=== PATIENT | female | born 1990 | race African-American/Black ===

== ENCOUNTER 2016-05-02 19:39 | Emergency (ER) | payer SELFPAY ==
[2016-05-02] MEDS ORDERED: DIPHENHYDRAMINE HCL 25 MG CAPSULE PO ONE (20:34)
[2016-05-02] MEDS ORDERED: ACETAMINOPHEN 325 MG TABLET PO ONE (20:34)
[2016-05-02] MEDS ORDERED: METOCLOPRAMIDE HCL 10 MG TABLET PO ONE (20:34)
--- NOTE | 2016-05-02 20:34 | ER Document Report ---
ED Medical Screen (RME) - General Stated Complaint: COUGH,HEADACHE Notes: Patient is a 25-year-old female presents emergency Department complaining of migraine for the past 3 days. States that distribution is all around her head. Has not resolved with BC powder which she states typically takes care of that. Denies light or sound sensitive. also admits to cough for about 1.5 months but nonproductive and worse when she lies down. Also feels lethargic which has been for the past three days I have greeted and performed a rapid initial assessment of this patient. A comprehensive ED assessment and evaluation of the patient, analysis of test results and completion of the medical decision making process will be conducted by additional ED providers. TRAVEL OUTSIDE OF THE [place] IN LAST 30 DAYS: No - Related Data Allergies/Adverse Reactions: No Known Allergies Allergy (Verified 02/07/16 18:23) Past Medical History - Past Medical History Cardiac Medical History: Reports: Hx Hypertension - Immunizations Hx Diphtheria, Pertussis, Tetanus Vaccination: Yes - unknown last Physical Exam - Vital signs Vitals: Temp Pulse Resp BP Pulse Ox 98.0 F 99 17 140/92 H 99 05/02/16 20:21 05/02/16 20:21 05/02/16 20:21 05/02/16 20:21 05/02/16 20:21 Course - Vital Signs Vital signs: Temp Pulse Resp BP Pulse Ox 98.0 F 99 17 140/92 H 99 05/02/16 20:21 05/02/16 20:21 05/02/16 20:21 05/02/16 20:21 05/02/16 20:21
--- NOTE | 2016-05-02 22:22 | ER Document Report ---
ED General - General Chief Complaint: Headache >24 hrs old Stated Complaint: COUGH,HEADACHE Notes: Patient is a 25-year-old female that comes emergency department chief complaint of sinus and nasal congestion, cough, irritated throat, and headache. She states she has had symptoms for over 3 days worse than usual, however over the past 1.5 months she has had difficulties with this, states when she lies flat she cannot stop coughing. LMP within the past 4 weeks. Patient had a negative CAT scan of the head last year, takes BC powder for migraines as needed. TRAVEL OUTSIDE OF THE [place] IN LAST 30 DAYS: No - Related Data Allergies/Adverse Reactions: No Known Allergies Allergy (Verified 02/07/16 18:23) Past Medical History - General Information source: Patient - Social History Smoking Status: Former Smoker Frequency of alcohol use: None Drug Abuse: None Lives with: Family Family History: Arthritis, CAD, CVA, DM, Hyperlipidemia, Hypertension, Malignancy, Thyroid Disfunction Patient has suicidal ideation: No Patient has homicidal ideation: No - Past Medical History Cardiac Medical History: Reports: Hx Hypertension Renal/ Medical History: Denies: Hx Peritoneal Dialysis Surgical Hx: Negative - Immunizations Hx Diphtheria, Pertussis, Tetanus Vaccination: Yes - unknown last Review of Systems - Review of Systems Constitutional: See HPI EENT: See HPI Cardiovascular: No symptoms reported Respiratory: No symptoms reported Gastrointestinal: No symptoms reported Genitourinary: No symptoms reported Female Genitourinary: No symptoms reported Musculoskeletal: No symptoms reported Skin: No symptoms reported Hematologic/Lymphatic: No symptoms reported Neurological/Psychological: See HPI Physical Exam - Vital signs Vitals: Temp Pulse Resp BP Pulse Ox 98.0 F 99 17 140/92 H 99 05/02/16 20:21 05/02/16 20:21 05/02/16 20:21 05/02/16 20:21 05/02/16 20:21 Interpretation: Normal - General General appearance: Appears well, Alert - HEENT Head: Normocephalic, Atraumatic Eyes: Normal Conjunctiva: Normal Extraocular movements intact: Yes Eyelashes: Normal Pupils: PERRL Ears: Normal External canal: Normal Tympanic membrane: Normal Sinus: Frontal, Maxillary, Other - Tender over maxillary and frontal sinuses, slightly worse on the frontal sinuses, no severe tenderness Nasal: Other - Mild nasal congestion with slightly swollen and erythematous turbinates Mouth/Lips: Normal Mucous membranes: Normal Pharynx: Erythema - Very mild posterior pharynx erythema. No: Tonsillar hypertrophy, Uvular edema Neck: Normal. No: Anterior cervical chain, Posterior cervical chain - Respiratory Respiratory status: No respiratory distress Chest status: Nontender Breath sounds: Normal. No: Nonproductive cough, Wheezing Chest palpation: Normal - Cardiovascular Rhythm: Regular. No: Tachycardia Heart sounds: Normal auscultation, S1 appreciated, S2 appreciated Murmur: No - Abdominal Inspection: Normal Distension: No distension Bowel sounds: Normal Tenderness: Nontender Organomegaly: No organomegaly - Back Back: Normal, Nontender - Extremities General upper extremity: Normal inspection, Nontender, Normal color, Normal ROM , Normal temperature General lower extremity: Normal inspection, Nontender, Normal color, Normal ROM , Normal temperature, Normal weight bearing. No: Keshawn's sign - Neurological Neuro grossly intact: Yes Cognition: Normal Orientation: AAOx4 Rodney Coma Scale Eye Opening: Spontaneous Rodney Coma Scale Verbal: Oriented Rodney Coma Scale Motor: Obeys Commands [place] Coma Scale Total: 15 Speech: Normal Motor strength normal: LUE, RUE, LLE, RLE Sensory: Normal - Psychological Associated symptoms: Normal affect, Normal mood - Skin Skin Temperature: Warm Skin Moisture: Dry Skin Color: Normal Course - Re-evaluation Re-evalutation: Patient pleasantly talking on cell phone when I entered the room, alert, smiling , cheerful, talkative. Patient is obviously congestion with congestion of the nose and tenderness over the sinuses. No neurological deficits were concerning exam findings. Headache has resolved after by mouth medications from triage. Will treat sinuses, discharge with primary care follow-up, discussed return precautions, patient states satisfaction and agreement. - Vital Signs Vital signs: Temp Pulse Resp BP Pulse Ox 97.9 F 90 19 135/88 H 100 05/02/16 22:37 05/02/16 22:37 05/02/16 22:37 05/02/16 22:37 05/02/16 22:37 Discharge - Discharge Clinical Impression: Sinus congestion, Cough Headache Qualifiers: Headache type: unspecified Headache chronicity pattern: episodic headache Intractability: not intractable Qualified Code(s): R51 - Headache Condition: Stable Disposition: HOME, SELF-CARE Additional Instructions: Examination is consistent with a sinus infection, congestion of the paranasal sinuses, and headache was likely related to this as well. By examination there appears to be an allergic component to your congestion, cough, and sore throat. Take amoxicillin antibiotic for sinuses, use the Ksenia and Flonase daily to help control your sinuses, follow-up with primary care referral for additional management. Return to emergency department for any concerning or worsening symptoms. Prescriptions: Amoxicillin Trihydrate [Amoxil 500 mg Capsule] 500 mg PO TID #30 cap Fexofenadine HCl [Ksenia Allergy] 180 mg PO DAILY #30 tablet Fluticasone Propionate [Flonase Nasal [place] 50 Mcg/[place] 16 gm] 2 sprays NASL Q12 #1 inhaler Forms: Treatment of Relative/Child, Elevated Blood Pressure
[2016-05-02 22:42] VITALS: BP 135/88
== END 2016-05-02 22:43 | disposition home or self-care (01) ==
LOC: ER 19:39
DX: R05 Cough (principal); R09.81 Nasal congestion; R51 Headache; R09.89 Other specified symptoms and signs involving the circulatory and respiratory systems; I10 Essential (primary) hypertension; Z87.891 Personal history of nicotine dependence; Z86.69 Personal history of other diseases of the nervous system and sense organs
CPT/HCPCS: 71020; 99284

== ENCOUNTER 2017-06-12 11:00 | Emergency (ER) | payer SELFPAY ==
--- NOTE | 2017-06-12 12:13 | ER Document Report ---
ED Medical Screen (RME) - General Chief Complaint: Vag Bleeding, +preg <12wks Stated Complaint: VAGINAL BLEEDING Time Seen by Provider: 06/12/17 11:51 Mode of Arrival: Ambulatory Information source: Patient Notes: Patient is a 27-year-old female who presents to the emergency department today with complaints of lower abdominal pain. Patient states that the "when she had her second child she was told that she would either miscarry or perhaps if she became again". Patient states that she was "going to go to [place] to have an " but she has not gotten that far yet. Patient is A1. Patient states she found out she was 4 [facility]. Patient states she has had lower abdominal cramping that radiates to her back. Patient has had associated nausea, vomiting , and a headache. Patient denies dysuria. TRAVEL OUTSIDE OF THE [place] IN LAST 30 DAYS: No - Related Data Allergies/Adverse Reactions: No Known Allergies Allergy (Verified 02/07/16 18:23) Past Medical History - General Information source: Patient Last Menstrual Period: april - Social History Chew tobacco use (# tins/day): No Frequency of alcohol use: Rare Drug Abuse: Marijuana Lives with: Family Family history: Reviewed & Not Pertinent - Past Medical History Cardiac Medical History: Reports: Hx Hypertension Renal/ Medical History: Denies: Hx Peritoneal Dialysis Surgical Hx: Negative - Immunizations Hx Diphtheria, Pertussis, Tetanus Vaccination: Yes - unknown last Review of Systems - Review of Systems Constitutional: No symptoms reported EENT: No symptoms reported Cardiovascular: No symptoms reported Respiratory: No symptoms reported Gastrointestinal: See HPI, Abdominal pain, Nausea, Vomiting Genitourinary: denies: Dysuria Female Genitourinary: See HPI, Last menstrual period - "beginning of April", Musculoskeletal: No symptoms reported Skin: No symptoms reported Hematologic/Lymphatic: No symptoms reported Neurological/Psychological: Headaches -: Yes All other systems reviewed and negative Physical Exam - Vital signs Vitals: Temp Pulse Resp BP Pulse Ox 98.5 F 102 H 17 150/87 H 99 06/12/17 11:05 06/12/17 11:05 06/12/17 11:05 06/12/17 11:05 06/12/17 11:05 - Notes Notes: Physical Exam: General: Alert, appears well. HEENT: Normocephalic. Atraumatic. PERRLA. Extraocular movements intact. Oropharynx clear. Neck: Supple. Respiratory: No respiratory distress. Abdominal: Normal Inspection. No distension. Extremities: Moves all four extremities. Neurological: Normal cognition. AAOx4. Normal speech. Psychological: Normal affect. Normal Mood. Skin: Warm. Dry. Normal color. Course - Vital Signs Vital signs: Temp Pulse Resp BP Pulse Ox 98.5 F 102 H 17 150/87 H 99 06/12/17 11:05 06/12/17 11:05 06/12/17 11:05 06/12/17 11:05 06/12/17 11:05 - Laboratory Laboratory results interpreted by ny: 06/12/17 06/12/17 12:34 12:34 Beta HCG, Quant 24655.00 H Urine Protein 30 H Urine Urobilinogen 2.0 H Ur Leukocyte Esterase MODERATE H Scribe Documentation - Scribe Written by Fidel:: Fidel García, 06/12/2017 1510 acting as scribe for :: Johann
[2017-06-12 13:01] LABS: APPEARANCE,URINE SLIGHTLY-CLOUDY; BILIRUBIN,URINE NEGATIVE (NEGATIVE); COLOR,URINE YELLOW; GLUCOSE, URINE NEGATIVE (NEGATIVE); KETONES,URINE NEGATIVE (NEGATIVE); LEUKOCYTE ESTERASE,URINE MODERATE (NEGATIVE); NITRITE,URINE NEGATIVE (NEGATIVE); PROTEIN,URINE 30 mg/dL (NEGATIVE); URINE SPECIFIC GRAVITY 1.021
--- NOTE | 2017-06-12 14:59 | RADIOLOGY REPORT (SQ) ---
EXAM DESCRIPTION: U/S OB TRANSVAGINAL W/O DOP COMPLETED DATE/TIME: 06/12/2017 2:49 pm REASON FOR STUDY: vag bleed, 5 weeks preg COMPARISON: None. TECHNIQUE: Transvaginal static and realtime grayscale images acquired of the pelvis. Additional gonsalo cted spectral and color Doppler images recorded. All images stored on PACs. bHCG: Not available. LIMITATIONS: None. FINDINGS: FETUS: Living intrauterine . EGA: 6 week 1 day. FRANK: 02/04/2018. FHR: cardiac activity is visualized on real-time imaging. Unable to obtain an accurate heart r ate due to the small size. SUBCHORIONIC BLEED: No. SIZE OF BLEED: Not applicable. UTERUS: No masses. No anomalies. CERVICAL LENGTH: 3.2 cm. Closed. RIGHT ADNEXA: Ovary not identified. No adnexal free fluid. No adnexal masses. LEFT ADNEXA: Normal ovary with normal vascular flow. No adnexal free fluid. No adnexal masses. FREE FLUID: None. OTHER: No other significant finding. IMPRESSION: LIVING INTRAUTERINE . EGA 6 WEEK 1 DAY. Trimester of : First - 0 to 13 weeks. TECHNICAL DOCUMENTATION: JOB ID: [id number] [employer]- All Rights Reserved Reading location - IP/workstation name: [email or web address]
[2017-06-12 16:07] VITALS: BP 143/95
--- NOTE | 2017-06-12 16:07 | ER Document Report ---
ED GI/ - General Chief Complaint: Vag Bleeding, +preg <12wks Stated Complaint: VAGINAL BLEEDING Time Seen by Provider: 06/12/17 11:51 Mode of Arrival: Ambulatory Notes: Patient is approximately 6 weeks and experiencing pains across her lower abdomen for the past week. Pains are crampy. She is also had some vaginal spotting for the past couple of days. G4, P2, A1. LMP was in early April. She is experiencing nausea and vomiting. Denies any fevers. Denies any other symptoms. Patient has a history of sleep apnea and migraine headaches. She has had gestational hypertension with past pregnancies but she is not on any medicines for blood pressure at this time. TRAVEL OUTSIDE OF THE [place] IN LAST 30 DAYS: No - Related Data Allergies/Adverse Reactions: No Known Allergies Allergy (Verified 02/07/16 18:23) Past Medical History - General Information source: Patient Last Menstrual Period: april - Social History Smoking Status: Unknown if Ever Smoked Chew tobacco use (# tins/day): No Frequency of alcohol use: Rare Drug Abuse: Marijuana Lives with: Family Family History: Reviewed & Not Pertinent, Arthritis, CAD, CVA, DM, Hyperlipidemia, Hypertension, Malignancy, Thyroid Disfunction Patient has suicidal ideation: No Patient has homicidal ideation: No - Past Medical History Cardiac Medical History: Reports: Hx Hypertension Surgical Hx: Negative - Immunizations Hx Diphtheria, Pertussis, Tetanus Vaccination: Yes - unknown last Review of Systems - Review of Systems Notes: REVIEW OF SYSTEMS: CONSTITUTIONAL : Denies fever. EENT: Denies eye, ear, nose or mouth or throat pain or other symptoms. CARDIOVASCULAR: Denies chest pain. RESPIRATORY: Denies cough, chest congestion, or shortness of breath. GASTROINTESTINAL: See HPI.. GENITOURINARY: See HPI. MUSCULOSKELETAL: Denies back or neck pain. Denies joint pain or swelling. SKIN: Denies rash or skin lesions. NEUROLOGICAL: Denies LOC or altered mental status. Denies headache. Denies sensory loss or motor deficits. ALL OTHER SYSTEMS REVIEWED AND NEGATIVE. Physical Exam - Vital signs Vitals: Temp Pulse Resp BP Pulse Ox 98.5 F 102 H 17 150/87 H 99 06/12/17 11:05 06/12/17 11:05 06/12/17 11:05 06/12/17 11:05 06/12/17 11:05 Interpretation: Hypertensive - Mild - Notes Notes: PHYSICAL EXAMINATION: GENERAL: Well-appearing, in no acute distress. Blood pressure just slightly elevated. HEAD: Atraumatic, normocephalic. EYES: Pupils equal round and reactive to light, extraocular movements intact. ENT: oropharynx clear without exudates. Moist mucous membranes. NECK: Normal range of motion, supple. LUNGS: Breath sounds clear and equal bilaterally. HEART: Regular rate and rhythm without murmurs. ABDOMEN: Soft, nontender. No guarding or rebound. No masses. BACK: No tenderness throughout entire back. EXTREMITIES: Normal range of motion without pain. NEUROLOGICAL: Normal speech, normal gait. Normal sensory, motor, and reflex exams. Awake, alert, and oriented x3. Cranial nerves normal. PSYCH: Normal mood, normal affect. SKIN: Warm, dry, no rashes. Course - Re-evaluation Re-evalutation: 06/12/17 19:45 Patient is Rh- so she was given RhoGam. - Vital Signs Vital signs: Temp Pulse Resp BP Pulse Ox 98.3 F 88 16 143/95 H 100 06/12/17 16:03 06/12/17 16:03 06/12/17 16:03 06/12/17 16:03 06/12/17 16:03 - Laboratory Laboratory results interpreted by me: 06/12/17 06/12/17 12:34 12:34 Beta HCG, Quant 16026.00 H Urine Protein 30 H Urine Urobilinogen 2.0 H Ur Leukocyte Esterase MODERATE H - Diagnostic Test Radiology reviewed: Image reviewed, Reports reviewed - Ultrasound showed a living IUP about 6 weeks gestation. Heartbeat can be noted to be eating, but too small to calculate a heart rate. No other abnormalities. Discharge - Discharge Clinical Impression: , Vaginal bleeding during Condition: Stable Disposition: HOME, SELF-CARE Additional Instructions: : You are . care is best started as early in as possible. If you're unsure about continuing this , you should discuss this with your physician or with aircraft electrical systems specialist at [facility]. You should take only medications approved by your physician. Acetaminophen can safely be taken for minor pains. As a rule, medication for chronic conditions such as asthma or seizures can safely be continued. You should discuss with the physician every medicine you take. Any regular exercise program can be continued. Talk to your physician, however, before engaging in competitive or demanding sports. Alcohol, smoking, and "street drugs" are dangerous to your baby. Cocaine is especially dangerous. Don't use any illicit drugs! BLEEDING DURING EARLY : You have been evaluated for passing blood while . While we take this symptom very seriously, most women with your degree of bleeding will go on to have a perfectly normal baby. At this time, there is no indication that a miscarriage will occur. (A miscarriage occurs when the fetus is abnormal. There is no medicine or treatment to prevent it.) A more serious cause of bleeding is tubal (or ectopic) . An ultrasound usually can show whether the is in the uterus or in the tube. Sometimes in early , no fetus is seen. In this case, careful follow-up, including repeat blood tests and repeat ultrasound, is necessary. Do not douche or have sex for at least a week, or until OK'd by the doctor. Don't use tampons. Call the doctor or return for re-examination if there is an increase in bleeding or cramping, extreme weakness, fainting, new abdominal pain, fever, or passage of tissue. THREATENED MISCARRIAGE: You have been evaluated for a possible miscarriage. At this time, there is no indication that a miscarriage will occur. Most women with your symptoms will go on to have a perfectly normal baby. However, careful observation will be necessary. A miscarriage occurs when the fetus is abnormal. There is no medicine or treatment for it. You should rest in bed until the symptoms have resolved. Do not douche or have sex for at least a week, or until OK'd by the doctor. Call the doctor or return for re-examination if there is an increase in bleeding or cramping, or passage of tissue. RHOGAM: Rhogam is given to a woman who has Rh negative blood type when she has vaginal bleeding during her or at the time of the delivery of her baby. If a woman is Rh negative, her body will form antibodies against red blood cells from an Rh positive fetus or baby that mix with her blood during a threatened or actual miscarraige or delivery. These antibodies will remain in the woman's body forever and will attack any future Rh positive fetus preventing it from developing into a normal baby. Rhogam is given to prevent the mother's body from forming these antibodies. USE OF ACETAMINOPHEN (Tylenol): Acetaminophen may be taken for pain relief or fever control. It's much safer than aspirin, offering a wider range of "safe" dosages. It is safe during . Some brand names are Tylenol, Panadol, Datril, Anacin 3, Tempra, and Liquiprin. Acetaminophen can be repeated every four hours. The following are maximum recommended dosages: WEIGHT Dose Drops Elixir Chewable( 80mg) (LBS.) drprs=droppers tsp=teaspoon >89 pounds or adults 650 mg to 900 mg Acetaminophen can be repeated every four hours. Maximum dose not to exceed 4000 mg a day. These maximum recommended dosages are slightly higher than the dosages written on the product container, but these dosages are very safe and below the toxic dosage for acetaminophen. FOLLOW-UP CARE: If you have been referred to a physician for follow-up care, call the physician s office for an appointment as you were instructed or within the next two days. If you experience worsening or a significant change in your symptoms (very heavy bleeding with large clots of blood, passage of tissue, more severe abdominal / pelvic pain or cramping, feeling faint or severe weakness, fever, etc.), notify the physician immediately or return to the Emergency Department at any time for re-evaluation. Follow-up at the local health department for you to be assigned to an HUMAN RESOURCE CONSULTANT doctor for further follow-up care. Return for reevaluation if you start passing heavy blood and clots or severe pain that is not controlled with Tylenol.
== END 2017-06-12 16:10 | disposition home or self-care (01) ==
LOC: ER 11:00
DX: O20.9 Hemorrhage in early pregnancy, unspecified (principal); Z3A.01 Less than 8 weeks gestation of pregnancy
CPT/HCPCS: 99284; 96372; 86900; 86901; 36415; 86850; 84702; 81001; 76817; J2790

== ENCOUNTER 2017-06-26 08:13 | Emergency (ER) | payer SELFPAY ==
[2017-06-26 09:48] LABS: HEMATOCRIT 29.5 % (36.0-47.0); MEAN CORPUSCULAR HEMOGLOBIN 19.5 pg (27.0-33.4); MEAN CORPUSCULAR HGB CONC 30.5 g/dL (32.0-36.0); PLATELET COUNT 266 10^3/uL (150-450); RED BLOOD COUNT 4.61 10^6/uL (3.72-5.28); RED CELL DISTRIBUTION WIDTH 20.7 % (11.5-14.0); WHITE BLOOD COUNT 6.1 10^3/uL (4.0-10.5)
[2017-06-26 09:54] LABS: MEAN CORPUSCULAR VOLUME 64 fl (80-97)
[2017-06-26 10:28] LABS: ABSOLUTE MONOCYTES # (MANUAL) 0.6 10^3/uL (0.1-1.4); ABSOLUTE NEUTROPHILS# (MANUAL) 3.5 10^3/uL (1.7-8.2); BASOPHILS % (MANUAL) 1 % (0-2); EOSINOPHILS % (MANUAL) 0 % (0-6); LYMPHOCYTES % (MANUAL) 31 % (13-45); MONOCYTES % (MANUAL) 10 % (3-13); SEGMENTED NEUTROPHILS % (MAN) 57 % (42-78); TOTAL CELLS COUNTED 100
[2017-06-26 10:29] LABS: ANISOCYTOSIS 2+; HYPOCHROMASIA 2+; OVALOCYTES 1+; PLATELET COMMENT ADEQUATE; POIKILOCYTOSIS 1+; POLYCHROMASIA 1+; ROULEAUX SLIGHT
--- NOTE | 2017-06-26 10:47 | RADIOLOGY REPORT (SQ) ---
EXAM DESCRIPTION: U/S [id number] TRNABD 1GES W/ODOP COMPLETED DATE/TIME: 06/26/2017 10:17 am REASON FOR STUDY: vag bleeding, COMPARISON: 06/12/2017 TECHNIQUE: Transabdominal static and realtime grayscale images acquired of the pelvis. Additional se lected spectral and color Doppler images recorded. All images stored on PACs. bHCG: Not available CLINICAL DATES: 02/04/2018 LIMITATIONS: None. FINDINGS: FETUS: Living intrauterine . ULTRASOUND EGA: 7 weeks 3 days ULTRASOUND FRANK: 02/09/2018 CRL: 1.2 cm FHR: 152 beats per minute. SUBCHORIONIC BLEED: No SIZE OF BLEED: Not applicable. UTERUS: No masses. No anomalies. CERVICAL LENGTH: 3.4 cm Closed. RIGHT ADNEXA: Right ovary was not visualized. No adnexal free fluid. No adnexal masses. LEFT ADNEXA: Left ovary was not visualized. No adnexal free fluid. No adnexal masses. FREE FLUID: None. OTHER: No other significant finding. IMPRESSION: LIVING INTRAUTERINE . EGA 7 weeks 3 days Trimester of : First - 0 to 13 weeks. TECHNICAL DOCUMENTATION: JOB ID: [id number] [employer]- All Rights Reserved rev-07/11 Reading location - IP/workstation name: [email or web address]
[2017-06-26] MEDS ORDERED: ACETAMINOPHEN 325 MG TABLET PO ONE (11:26)
[2017-06-26 11:42] LABS: APPEARANCE,URINE SLIGHTLY-CLOUDY; BILIRUBIN,URINE NEGATIVE (NEGATIVE); COLOR,URINE YELLOW; GLUCOSE, URINE NEGATIVE (NEGATIVE); KETONES,URINE NEGATIVE (NEGATIVE); LEUKOCYTE ESTERASE,URINE LARGE (NEGATIVE); NITRITE,URINE NEGATIVE (NEGATIVE); PROTEIN,URINE NEGATIVE (NEGATIVE); URINE SPECIFIC GRAVITY 1.005; UROBILINOGEN,URINE NEGATIVE mg/dL (<2.0)
--- NOTE | 2017-06-26 12:11 | ER Document Report ---
ED GI/ - General Chief Complaint: Vaginal Bleeding Stated Complaint: VAGINAL BLEEDING Time Seen by Provider: 06/26/17 08:43 Mode of Arrival: Ambulatory Information source: Patient Notes: Patient is a 27-year-old female, approximately 2 months who presents to the ER today for pink discharge with milky white discharge over the past week. Patient states that the milky white discharge is normal for her, however she was worried because of the spotting. Patient admits to some lower abdominal cramping all across the lower belly. Patient denies any fever, chills , pain on one side or the other of the abdomen. She denies any dysuria, low back pain. TRAVEL OUTSIDE OF THE [place] IN LAST 30 DAYS: No - Related Data Allergies/Adverse Reactions: No Known Allergies Allergy (Verified 02/07/16 18:23) Past Medical History - General Information source: Patient - Social History Smoking Status: Never Smoker Family History: Reviewed & Not Pertinent, Arthritis, CAD, CVA, DM, Hyperlipidemia, Hypertension, Malignancy, Thyroid Disfunction - Past Medical History Cardiac Medical History: Reports: Hx Hypertension Renal/ Medical History: Denies: Hx Peritoneal Dialysis - Immunizations Hx Diphtheria, Pertussis, Tetanus Vaccination: Yes - unknown last Review of Systems - Review of Systems Constitutional: No symptoms reported EENT: No symptoms reported Cardiovascular: No symptoms reported Respiratory: No symptoms reported Gastrointestinal: No symptoms reported Genitourinary: No symptoms reported Female Genitourinary: See HPI Musculoskeletal: No symptoms reported Skin: No symptoms reported Hematologic/Lymphatic: No symptoms reported Neurological/Psychological: No symptoms reported Physical Exam - Vital signs Vitals: Temp Pulse Resp BP Pulse Ox 98.1 F 112 H 20 141/95 H 100 06/26/17 08:29 06/26/17 08:29 06/26/17 08:29 06/26/17 08:29 06/26/17 08:29 - Notes Notes: PHYSICAL EXAMINATION: GENERAL: Well-appearing and in no acute distress. HEAD: Atraumatic, normocephalic. EYES: Pupils equal round and reactive to light, extraocular movements intact, sclera anicteric, conjunctiva are normal. NECK: Normal range of motion, supple without lymphadenopathy LUNGS: CTAB and equal. No wheezes rales or rhonchi. HEART: Regular rate and rhythm without murmurs ABDOMEN: Soft, no tenderness. No guarding, no rebound BACK: no vertebral tenderness, normal ROM GI/: no CVA tenderness EXTREMITIES: Normal range of motion, no pitting edema. No cyanosis. NEUROLOGICAL: Cranial nerves grossly intact. Normal sensory/motor exams. PSYCH: Normal mood, normal affect. SKIN: Warm, Dry, normal turgor, no rashes or lesions noted Course - Re-evaluation Re-evalutation: 06/26/17 12:08 Ultrasound reports a living intrauterine with a heart rate of 152 bpm with no evidence of abnormality, bleed. Patient has 27 white blood cells and leukocytes on her urinalysis today. Will treat for urinary tract infection and with Macrobid. Patient denies any back pain and has no flank pain on exam. Patient is afebrile here and has been sleeping. 06/26/17 12:09 She does have a hemoglobin of 9, I will start her on vitamins with iron. - Vital Signs Vital signs: Temp Pulse Resp BP Pulse Ox 98.1 F 112 H 20 141/95 H 100 06/26/17 08:29 06/26/17 08:29 06/26/17 08:29 06/26/17 08:29 06/26/17 08:29 - Laboratory Result Diagrams: 06/26/17 08:55 Laboratory results interpreted by me: 06/26/17 06/26/17 08:55 11:19 Hgb 9.0 L Hct 29.5 L MCV 64 L MCH 19.5 L MCHC 30.5 L RDW 20.7 H Ur Leukocyte Esterase LARGE H Urine HCG, Qual POSITIVE H Discharge - Discharge Clinical Impression: Low hemoglobin UTI (urinary tract infection) Qualifiers: Urinary tract infection type: acute cystitis Hematuria presence: with hematuria Qualified Code(s): N30.01 - Acute cystitis with hematuria Qualifiers: Weeks of gestation: less than 8 weeks Qualified Code(s): Z3A.01 - Less than 8 weeks gestation of Condition: Stable Disposition: HOME, SELF-CARE Additional Instructions: Return immediately for any new or worsening symptoms. Follow up with [facility], call tomorrow to make followup appointment. Prescriptions: Nitrofurantoin/Nitrofuran Mac [Macrobid 100 mg Capsule] 1 tab PO BID #20 capsule Pnv,Calcium 72/Iron,Carb/Folic [ Plus Iron Tablet] 1 each PO DAILY #30 tablet Referrals: [facility] [Provider Group] - Follow up as needed
[2017-06-26 12:56] VITALS: BP 148/102
[2017-06-27 14:47] LABS: PATH REVIEW PATHOLOGIST REVIEWED
== END 2017-06-26 12:55 | disposition home or self-care (01) ==
LOC: ER 08:13
DX: O23.41 Unspecified infection of urinary tract in pregnancy, first trimester (principal); O99.011 Anemia complicating pregnancy, first trimester; Z3A.01 Less than 8 weeks gestation of pregnancy
CPT/HCPCS: 36415; 76801; 81001; 81025; 85025; 99284

== ENCOUNTER 2017-09-09 20:58 | Observation (INO) | payer MEDICAID ==
[2017-09-09 22:07] LABS: ABSOLUTE EOSINOPHILS # (AUTO) 0.2 10^3/uL (0.0-0.6); ABSOLUTE LYMPHOCYTES (AUTO) 2.1 10^3/uL (0.5-4.7); ABSOLUTE MONOCYTES (AUTO) 0.8 10^3/uL (0.1-1.4); ABSOLUTE NEUT (AUTO) 6.7 10^3/uL (1.7-8.2); BASOPHILS % (AUTO) 0.2 % (0-2); HEMATOCRIT 26.1 % (36.0-47.0); HEMOGLOBIN 8.2 g/dL (12.0-15.5); LYMPHOCYTES % (AUTO) 21.4 % (13-45); MEAN CORPUSCULAR HEMOGLOBIN 19.8 pg (27.0-33.4); MEAN CORPUSCULAR HGB CONC 31.5 g/dL (32.0-36.0); MONOCYTES % (AUTO) 8.1 % (3-13); PLATELET COUNT 279 10^3/uL (150-450); RED BLOOD COUNT 4.16 10^6/uL (3.72-5.28); RED CELL DISTRIBUTION WIDTH 19.6 % (11.5-14.0); SEGMENTED NEUTROPHILS % (AUTO) 68.3 % (42-78); TOTAL CELLS COUNTED % (AUTO) 100 %; WHITE BLOOD COUNT 9.8 10^3/uL (4.0-10.5)
[2017-09-09 22:12] LABS: AMORPHOUS SEDIMENT,URINE TRACE /HPF; APPEARANCE,URINE SLIGHTLY-CLOUDY; BILIRUBIN,URINE NEGATIVE (NEGATIVE); COLOR,URINE YELLOW; GLUCOSE, URINE NEGATIVE (NEGATIVE); KETONES,URINE NEGATIVE (NEGATIVE); LEUKOCYTE ESTERASE,URINE MODERATE (NEGATIVE); NITRITE,URINE NEGATIVE (NEGATIVE); PROTEIN,URINE 30 mg/dL (NEGATIVE); URINE SPECIFIC GRAVITY 1.019
[2017-09-09 22:29] LABS: ANISOCYTOSIS 2+; OVALOCYTES 1+; PLATELET COMMENT ADEQUATE; POLYCHROMASIA SLIGHT; TARGET CELLS SLIGHT
[2017-09-09 22:30] LABS: MEAN CORPUSCULAR VOLUME 63 fl (80-97); POIKILOCYTOSIS 1+
--- NOTE | 2017-09-09 23:19 | ER Document Report ---
ED General - General Chief Complaint: Vaginal Bleeding Stated Complaint: ABDOMEN PAIN Time Seen by Provider: 09/09/17 22:57 Notes: Patient is a 27-year-old female who is . She is approximately 18-19 weeks . She has already received program this . Patient says for the previous 2 pregnancies she did develop preeclampsia. Patient says when she is not she does not have hypertension. She says her last few days her blood pressures been running high and also she has noticed some edema in her legs as well as headaches as well as some difficulty breathing. Patient also mentions little bit of vaginal spotting as well as some whitish discharge vaginally. She also has some pain down into her pelvic region. [facility] TRAVEL OUTSIDE OF THE [place] IN LAST 30 DAYS: No - Related Data Allergies/Adverse Reactions: No Known Allergies Allergy (Verified 02/07/16 18:23) Past Medical History - Social History Smoking Status: Unknown if Ever Smoked Frequency of alcohol use: None Drug Abuse: None Family History: Reviewed & Not Pertinent, Arthritis, CAD, CVA, DM, Hyperlipidemia, Hypertension, Malignancy, Thyroid Disfunction - Past Medical History Cardiac Medical History: Reports: Hx Hypertension Renal/ Medical History: Denies: Hx Peritoneal Dialysis - Immunizations Hx Diphtheria, Pertussis, Tetanus Vaccination: Yes - unknown last Review of Systems - Review of Systems Notes: My Normal Review Basic REVIEW OF SYSTEMS: CONSTITUTIONAL : Denies fever, chills, or sweats. Denies recent illness. EENT: Denies eye, ear, throat, or mouth pain or symptoms. Denies nasal or sinus congestion. CARDIOVASCULAR: Denies chest pain. RESPIRATORY: Shortness of breath. GASTROINTESTINAL: Denies abdominal pain. Denies nausea, vomiting, or diarrhea. GENITOURINARY: Denies difficulty urinating, painful urination, burning, frequency, or blood in urine. FEMALE GENITOURINARY: Currently . Some vaginal spotting. MUSCULOSKELETAL: Denies neck or back pain or joint pain or swelling. SKIN: Denies rash or skin lesions. NEUROLOGICAL: Denies altered mental status or loss of consciousness. has a headache. Denies weakness or paralysis or loss of use of either side. Denies problems with gait or speech. Denies sensory or motor loss. ALL OTHER SYSTEMS REVIEWED AND NEGATIVE. Physical Exam - Vital signs Vitals: Temp Pulse Resp BP Pulse Ox 98.4 F 107 H 16 150/107 H 99 09/09/17 21:03 09/09/17 21:03 09/09/17 21:03 09/09/17 21:03 09/09/17 21:03 - Notes Notes: General Appearance: Well nourished, alert, cooperative, no acute distress, no obvious discomfort. Well-appearing. Vitals: reviewed, See vital signs table. Head: no swelling or tenderness to the head Eyes: PERRL, EOMI, Conjuctiva clear Mouth: No decreasd moisture Throat: No tonsillar inflammation, No airway obstruction, No lymphadenopathy Neck: Supple, no neck tenderness, No thyromegaly Lungs: No wheezing, No rales, No rhonci, No accessory muscle use, good air exchange bilaterally. Heart: Normal rate, Regular rythm, No murmur, no rub Abdomen: Normal BS, soft, No rigidity, No abdominal tenderness, No guarding, no rebound, no abdominal masses, no organomegaly Exam: Normal external genitalia. No blood in vaginal vault. Small amount of whitish discharge in vaginal vault. Pelvic exam performed with Ricarda NUNEZ female primary grade teacher. Extremities: strength 5/5 in all extremities, good pulses in all extremities, no swelling or tenderness in the extremities, plus bilateral lower extremity edema. Skin: warm, dry, appropriate color, no rash Neuro: speech clear, oriented x 3, normal affect, responds appropriately to questions. Renal nerves II through XII are intact. Distal sensation intact. Patient moves all extremities without difficulty. Course - Re-evaluation Re-evalutation: 09/09/17 23:14 Patient has findings concerning for preeclampsia. She has swelling in her legs , hypertension, tachycardia, headache, and shortness of breath. She has had preeclampsia with her first 2 pregnancies. I did speak with Dr. Snowden, OB doctor, who wants to come evaluate the patient for any further medications are started. 09/10/17 01:04 Patient patient was evaluated by Dr. Snowden, OB physician. He said he would admit the patient and start treatment and further workup to determine whether this is chronic hypertension versus preeclampsia. Dictation of this chart was performed using voice recognition software; therefore, there may be some unintended grammatical errors. - Vital Signs Vital signs: Temp Pulse Resp BP Pulse Ox 98.4 F 107 H 16 150/107 H 99 09/09/17 21:03 09/09/17 21:03 09/09/17 21:03 09/09/17 21:03 09/09/17 21:03 - Laboratory Result Diagrams: 09/09/17 21:40 Laboratory results interpreted by me: 09/09/17 09/09/17 09/09/17 21:40 21:40 21:40 Hgb 8.2 L Hct 26.1 L MCV 63 L MCH 19.8 L MCHC 31.5 L RDW 19.6 H Uric Acid Beta HCG, Quant 19753.00 H Urine Protein 30 H Urine Urobilinogen 4.0 H Ur Leukocyte Esterase MODERATE H 09/09/17 21:40 Hgb Hct MCV MCH MCHC RDW Uric Acid 1.9 L Beta HCG, Quant Urine Protein Urine Urobilinogen Ur Leukocyte Esterase Discharge - Discharge Clinical Impression: Hypertension Qualifiers: Hypertension type: unspecified Qualified Code(s): I10 - Essential (primary) hypertension Qualifiers: Weeks of gestation: 19 weeks Qualified Code(s): Z3A.19 - 19 weeks gestation of Condition: Stable Disposition: ADMITTED OBSERVATION Admitting Provider: [facility] Admitted: Post
[2017-09-09 23:25] LABS: URIC ACID 1.9 mg/dL (2.5-6.2)
[2017-09-10 00:32] LABS: T.VAGINALIS (WET MOUNT) NO TRICHOMONAS SEEN
[2017-09-10 00:33] LABS: BACTERIA (WET MOUNT) 3+ BACTERIA SEEN; EPITHELIALS (WET MOUNT) 4+ EPITHELIALS SEEN; RBCS (WET MOUNT) RARE RBCS SEEN; WBCS (WET MOUNT) 2+ WBCS SEEN; YEAST (WET MOUNT) YEAST SEEN
[2017-09-10 01:52] LABS: CHLAM PCR NOT DETECTED (NOT DETECT); GON PCR NOT DETECTED (NOT DETECT)
[2017-09-10] MEDS ORDERED: NIFEDIPINE 30 MG TAB.ER.24 PO ONE ×2 (03:00→15:00)
[2017-09-10] MEDS: ACETAMINOPHEN 325 MG TABLET PO PRN (10:25)
[2017-09-10] MEDS ORDERED: DOCUSATE SODIUM 100 MG CAPSULE PO PRN (11:17)
[2017-09-10] MEDS: FERROUS SULFATE 325 MG TABLET PO SCH (17:50)
[2017-09-10] MEDS: NIFEDIPINE 30 MG TAB.ER.24 PO SCH (21:40)
--- NOTE | 2017-09-10 21:40 | PDOC PROGRESS REPORT ---
Subjective Progress Note for:: 09/10/17 Subjective:: now discomfort 2/10, pt had 5/10 ARIAS at admission. She is tolerating po and doing well and fells well otherwise Reason For Visit: HTN Physical Exam - Physical Exam Vital Signs: Temp Pulse Resp BP Pulse Ox 97.9 F 104 H 18 157/98 H 100 09/10/17 14:28 09/10/17 14:28 09/10/17 14:28 09/10/17 14:28 09/10/17 14:28 Intake & Output 09/09/17 09/10/17 09/11/17 06:59 06:59 06:59 Intake Total 900 Output Total 500 Balance 400 General appearance: PRESENT: no acute distress, well-developed, well-nourished Head exam: PRESENT: atraumatic, normocephalic Respiratory exam: PRESENT: clear to auscultation agustín, symmetrical, unlabored Cardiovascular exam: PRESENT: RRR. ABSENT: diastolic murmur, rubs, systolic murmur GI/Abdominal exam: PRESENT: normal bowel sounds, soft. ABSENT: distended, guarding, mass, organolmegaly, rebound, tenderness Rectal exam: PRESENT: deferred Musculoskeletal exam: PRESENT: ambulatory Neurological exam: PRESENT: alert, awake, oriented to person, oriented to place , oriented to time, oriented to situation, CN II-XII grossly intact. ABSENT: motor sensory deficit Psychiatric exam: PRESENT: appropriate affect, normal mood. ABSENT: homicidal ideation, suicidal ideation Assessment & Plan - Diagnosis (1) Hypertension Qualifiers: Hypertension type: essential hypertension Qualified Code(s): I10 - Essential (primary) hypertension Is this a current diagnosis for this admission?: Yes Plan: Pt has a h/o PreE with prior pregnancies. Presentation is c/w CHTN. Reviewed with patient that may need to start labetolol. Poss discharge tomorrow or Friday depending on if need to start labetolol. Procardia XL 30mg increased to BID as she is still having severe range pressures intermittently - Time Time Spent with patient: 20min Time Spent with patient: Less than 15 minutes Anticipated discharge: Home Within: within 48 hours - Inpatient Certification Based on my medical assessment, after consideration of the patient's comorbidities, presenting symptoms, or acuity I expect that the services needed warrant INPATIENT care.: Yes I certify that my determination is in accordance with my understanding of Medicare's requirements for reasonable and necessary INPATIENT services [42 CFR 412.3e].: Yes Medical Necessity: Need Close Monitoring Due to Risk of Patient Decompensation, Need for Neurological Checks, Need for Pain Control Post Hospital Care: D/C [employer] Documentation - Plan Summary Plan Summary: Poss discharge to home on Friday
[2017-09-10] MEDS ORDERED: NIFEDIPINE 30 MG TAB.ER.24 PO SCH (22:00)
[2017-09-10] MEDS ORDERED: ZOLPIDEM TARTRATE 5 MG TABLET PO ONE (23:45)
[2017-09-11 05:42] LABS: URINE PROTEIN 19.9 mg/dL (<12)
[2017-09-11 05:59] LABS: 24 HOUR URINE PROTEIN RESULT 637 mg/day (42-225)
[2017-09-11] MEDS ORDERED: PROMETHAZINE HCL INJ 25 MG/1 ML VIAL ONE (09:32)
[2017-09-11] MEDS ORDERED: PROMETHAZINE HCL INJ 25 MG/1 ML VIAL IV PRN (09:46)
--- NOTE | 2017-09-11 10:54 | RADIOLOGY REPORT (SQ) ---
EXAM DESCRIPTION: U/S OB 14+ TA/1 GEST W/DOPPLER COMPLETED DATE/TIME: 09/10/2017 6:05 pm REASON FOR STUDY: GREATER THAN 17WKS,ABDOMINAL PAIN,SPOTTING COMPARISON: None. TECHNIQUE: Static and Dynamic grayscale imaging performed of gravid uterus using transabdominal appr oach. Additional selected color Doppler and spectral images recorded. All stored on PACS. LIMITATIONS: None. FINDINGS: EGA: 19 weeks 4 days FRANK: 01/31/2018 EFW: Not calculated PERCENTILE: Not calculated ORALIA: 9.2 cm PLACENTA: Fundal GRADE: I PRESENTATION: Breech. ANATOMY: HEART RATE: 145 beats per minute. FOUR CHAMBER HEART: Visualized. THREE VESSEL CORD: Yes. CORD INSERTION: Visualized. KIDNEYS AND BLADDER: Visualized. Appear normal. STOMACH: Visualized. Appears normal. SPINE: Normal as visualized. BRAIN AND LATERAL VENTRICLES: Visualized. Appear normal. OTHER: No other significant finding. MATERNAL ADNEXA: Maternal ovaries not visualized. CERVICAL LENGTH: 3.3 cm Closed. OTHER: No other significant finding. IMPRESSION: LIVING INTRAUTERINE . ESTIMATED GESTATIONAL AGE 19 weeks 4 days Breech orientation Trimester of : Second trimester - 13 weeks 1 day to 27 weeks 6 days. TECHNICAL DOCUMENTATION: JOB ID: [id number] [employer]- All Rights Reserved Reading location - IP/workstation name: [email or web address]
--- NOTE | 2017-09-11 13:42 | PDOC PROGRESS REPORT ---
Subjective-OB Progress Note for:: 09/11/17 Subjective: 27 yo admitted history of preeclampsia Chtn started on procardia 30 mg xl 24 hour urine completed this morning 19 wega abdomen nontender FHTs 127 pt reports intermittent headaches/ none currently plan to discharge in AM reviewed with Dr. Gallegos Physical Exam (OB) Vital Signs: Temp Pulse Resp BP Pulse Ox 97.8 F 109 H 20 150/67 H 96 09/11/17 10:11 09/11/17 10:11 09/11/17 10:11 09/11/17 10:11 09/11/17 10:11 Intake & Output 09/10/17 09/11/17 09/12/17 06:59 06:59 06:59 Intake Total 900 Output Total 500 3000 Balance 400 -3000 - Abdomen Hernia Present: No Objective-Diagnostic Laboratory: 09/10/17 04:00 Ur 24 Hour Volume 3200 Ur Total Protein 24 Hr 637 H Assessment and Plan(PN) - Disposition Anticipated Discharge: Home
[2017-09-11] MEDS: NIFEDIPINE 30 MG TAB.ER.24 PO SCH ×2 (18:16→22:12)
[2017-09-11] MEDS: FERROUS SULFATE 325 MG TABLET PO SCH ×2 (18:16→18:27)
[2017-09-11] MEDS: ACETAMINOPHEN 325 MG TABLET PO PRN (22:12)
[2017-09-12] MEDS: NIFEDIPINE 30 MG TAB.ER.24 PO SCH (09:50)
[2017-09-12] MEDS: FERROUS SULFATE 325 MG TABLET PO SCH (09:51)
--- NOTE | 2017-09-12 10:13 | PDOC DISCHARGE SUMMARY ---
General - Admit/Disc Date/PCP Admission Date/Primary Care Provider: 09/10/17 00:22 NANCY BENAVIDES MD Discharge Date: 09/12/17 - Discharge Diagnosis (1) Hypertension Is this a current diagnosis for this admission?: Yes (2) Is this a current diagnosis for this admission?: Yes (3) Proteinuria affecting in second trimester Is this a current diagnosis for this admission?: Yes - Additional Information Resuscitation Status: Full Code Home Medications: No Home Medications 09/10/17 History of Present Illness History of Present Illness: RUFUS RODRÍGUEZ is a 27 year old female Hospital Course Hospital Course: admitted for bp control and baseline Pre E workup. 24 hour urine shows a baseline proteinuria. Physical Exam - Physical Exam Vital Signs: Temp Pulse Resp BP Pulse Ox 98.0 F 111 H 18 155/75 H 95 09/12/17 08:57 09/12/17 08:57 09/12/17 08:57 09/12/17 08:57 09/12/17 08:57 Intake & Output 09/11/17 09/12/17 09/13/17 06:59 06:59 06:59 Intake Total 1590 Output Total 3000 Balance -3000 1590 General appearance: PRESENT: no acute distress, cooperative GI/Abdominal exam: PRESENT: soft - Obstetrical Exam Fundal Height: u/u - u/2 Result Impressions: Obstetrics Ultrasound 09/10/17 00:00 IMPRESSION: LIVING INTRAUTERINE . ESTIMATED GESTATIONAL AGE 19 weeks 4 days Breech orientation Trimester of : Second trimester - 13 weeks 1 day to 27 weeks 6 days. Plan Discharge Plan: discussed findings with patient. Will discharge home on Procardia. Did discuss with her that we will likely have to adjust this medication or add additional medication for her. She voices understanding. Will need to follow up in the office next week for a bp check Time Spent: Less than 30 Minutes
[2017-09-12 11:12] VITALS: BP 139/92
== END 2017-09-12 12:05 | disposition home or self-care (01) ==
LOC: ER 20:58 → EH 09-10 00:22 → 2N 09-10 01:40
PROVIDERS: ADMIT Obstetrics & Gynecology; ATTEND Obstetrics & Gynecology
DX: O10.012 Pre-existing essential hypertension complicating pregnancy, second trimester (principal); O26.852 Spotting complicating pregnancy, second trimester; O26.892 Other specified pregnancy related conditions, second trimester; N89.8 Other specified noninflammatory disorders of vagina; R00.0 Tachycardia, unspecified; R06.02 Shortness of breath; R10.2 Pelvic and perineal pain; O12.02 Gestational edema, second trimester; Z3A.19 19 weeks gestation of pregnancy; Z87.59 Personal history of other complications of pregnancy, childbirth and the puerperium; Z82.49 Family history of ischemic heart disease and other diseases of the circulatory system; Z83.3 Family history of diabetes mellitus
CPT/HCPCS: 99285; 86900; 86901; 36415; 87086; 87210; 84702; 83615; 84156; 84550; 85025; 81001; 87491; 87591; 76805; 93976; 94799; J3490 ×9; J2550; G0378

== ENCOUNTER 2017-10-07 08:57 | Outpatient (CLI) | payer MEDICAID ==
[~2017-10-07 08:57] MED LIST: FERUMOXYTOL (NON-ESRD) 510 MG/NS 100 ML IV PRN; NORMAL SALINE 250 ML IV PRN
[2017-10-07 09:56] VITALS: BP 130/88
== END 2017-10-07 11:40 | disposition home or self-care (01) ==
LOC: II 08:57 → 5TH 08:58 → II 11:40
PROVIDERS: ATTEND Internal Medicine
PROC: 3E043GC Introduction of Other Therapeutic Substance into Central Vein, Percutaneous Approach (ICD-10-PCS; principal; 2017-10-07)
DX: D50.8 Other iron deficiency anemias (principal)
CPT/HCPCS: 96367; Q0138; 96365

== ENCOUNTER 2017-10-14 08:13 | Outpatient (CLI) | payer MEDICAID ==
[~2017-10-14 08:13] MED LIST changes: -FERUMOXYTOL (NON-ESRD) 510 MG/NS 100 ML IV PRN; +FERUMOXYTOL 510 MG in NORMAL SALINE 100 ML IV PRN
[2017-10-14 09:29] VITALS: BP 132/73
== END 2017-10-14 11:35 | disposition home or self-care (01) ==
LOC: II 08:13 → 5TH 08:15 → II 11:35
PROVIDERS: ATTEND Internal Medicine
PROC: 3E033GC Introduction of Other Therapeutic Substance into Peripheral Vein, Percutaneous Approach (ICD-10-PCS; principal; 2017-10-14)
DX: D50.8 Other iron deficiency anemias (principal); K90.9 Intestinal malabsorption, unspecified
CPT/HCPCS: 96365; Q0138

== ENCOUNTER 2017-12-15 23:03 | Outpatient (CLI) | payer MEDICAID ==
--- NOTE | 2017-12-16 00:53 | Non Stress Test Report ---
Non Stress Test Datetime Report Generated by CPN: 12/16/2017 00:52 DEMOGRAPHIC Test Number: 1 EGA NST: 32.6 INDICATION Indication for Study: Other Indication for Study (NST) Other: ROM?/ labor check VITAL SIGNS Temperature - NST: 98.8 MONITORING Monitor Explained: Monitor Explained; Test Explained Time on Monitor: 12/15/2017 23:30 Time off Monitor: 12/16/2017 00:30 NST Duration: 60 NST INTERVENTIONS NST Interventions: None Physician Notified NST: Dr. Gallegos Physician Notified NST: Gallegos BABY A: [id number] BABY A Movement : Present Contraction Frequency : none FHR Baseline : 130 Accelerations : 15X15 Decelerations : None Variability : Moderate 6-25bpm Variability : Moderate 6-25bpm NST Review: Meets Criteria for Reactive NST NST Review and Verified By : BERYL Gonzalez NST Results: Reactive NST REPORT Report Trigger: Send Report
== END 2017-12-16 00:46 | disposition home or self-care (01) ==
LOC: LC 23:03
PROVIDERS: ATTEND Obstetrics & Gynecology Gynecology
PROC: 4A1HXCZ Monitoring of Products of Conception, Cardiac Rate, External Approach (ICD-10-PCS; principal; 2017-12-15)
DX: O10.913 Unspecified pre-existing hypertension complicating pregnancy, third trimester (principal); Z3A.32 32 weeks gestation of pregnancy
CPT/HCPCS: 59025; 84112

== ENCOUNTER 2017-12-28 14:27 | Inpatient (IN) | payer MEDICAID ==
[2017-12-28 15:13] LABS: APPEARANCE,URINE CLOUDY; BILIRUBIN,URINE NEGATIVE (NEGATIVE); COLOR,URINE YELLOW; GLUCOSE, URINE NEGATIVE (NEGATIVE); KETONES,URINE NEGATIVE (NEGATIVE); LEUKOCYTE ESTERASE,URINE LARGE (NEGATIVE); NITRITE,URINE NEGATIVE (NEGATIVE); PROTEIN,URINE 30 mg/dL (NEGATIVE); URINE SPECIFIC GRAVITY 1.012; UROBILINOGEN,URINE NEGATIVE mg/dL (<2.0)
[2017-12-28] MEDS ORDERED: NIFEDIPINE 30 MG TAB.ER.24 PO ONE ×2 (15:15→15:16)
[2017-12-28 15:30] LABS: URINE AMPHETAMINES SCREEN NEGATIVE; URINE BARBITURATES SCREEN NEGATIVE; URINE BENZODIAZEPINES SCREEN NEGATIVE; URINE COCAINE SCREEN NEGATIVE; URINE MARIJUANA (THC) SCREEN NEGATIVE; URINE METHADONE SCREEN NEGATIVE; URINE PHENCYCLIDINE SCREEN NEGATIVE
--- NOTE | 2017-12-28 16:29 | Admission Physical ---
Datetime Report Generated by CPN: 12/28/2017 16:28 CURRENT ADMISSION Chief Complaint: Maternal Discomfort; Other Chief Complaint Other: I won't take my medication. Indication for Induction: Not Applicable Admit Impression : , Intrauterine Admit Impression- Other: htn, noncompliance Admit Plan: Admit to Unit; Observation/Evaluation Admit Plan- Other: check 24 hour urine ALLERGIES Medication Allergies: No Medication Allergies: No Known Allergies (02/07/2016) Latex: No Latex Allergies OBSTETRICAL HISTORY EDC: 02/03/2018 00:00 : 4 Para: 2 Term: 2 SAB: 1 Livin Gestational Diabetes: No Rh Sensitization: No Incompetent Cervix: No LAURA: No Infertility: No ART Treatment: No Uterine Anomaly: No IUGR: No Hx Previous C/S: No Macrosomia: No Hx Loss/Stillborn: No PIH: No Hx : No Placenta Previa/Abruption: No Depression/PP Depression: No PTL/PROM: No Post Hemorrhage: No Current Procedures: Ultrasound SEE RECORDS Alcohol: No Marijuana : No Cocaine: No Other Illicit Drugs: No Cigarettes: Never Smoker. [id number] MEDICAL HISTORY Diabetes: No Blood Transfusion: No Pulmonary Disease (Asthma, TB): No Breast Disease: No Hypertension: Yes Insurance Operations Rep Surgery: No Heart Disease: No Hosp/Surgery: No Autoimmune Disorder: No Anesthetic Complications: No Kidney Disease: No Abnormal Pap Smear: No Neuro/Epilepsy: No Psychiatric Disorders: No Other Medical Diseases: No Hepatitis/Liver Disease: No Significant Family History: No Varicosities/Phlebitis: No Trauma/Violence : No Thyroid Dysfunction: No Medical History Comments: chronic HTN on procardia (Annotations: Data stored by [facility] on behalf of user) INFECTIOUS HISTORY Gonorrhea: No Genital Herpes: No Chlamydia: No Tuberculosis: No Syphilis: No Hepatitis: No HIV/AIDS Exposure: No Rash or Viral Illness: No HPV: No PHYSICAL EXAM General: Normal HEENT: Normal Neurologic: Normal Thyroid: Normal Heart: Normal Lungs: Normal Breast: Deferred Back: Normal Abdomen: Normal Genitourinary Exam: Normal Extremities: Normal DTRs: Normal Pelvic Type: Adequate Vital Signs: Reviewed MEMBRANES Pooling: Negative Membranes: Intact FETUS A EGA: 34.5 Accelerations: 15X15 Decelerations: None FHR Category: Category I Admit Comment: Admit for 24 hour urine and bp treatment PLANS FOR LABOR AND DELIVERY Labor and Delivery: None Pain Management: Epidural Feeding Preference: Both Benefit of Breast Feed Discussed: Yes Circumcision: N/A INFORMED CONSENT Signature: with User ID: [email or web address]
[2017-12-28 16:33] LABS: ABSOLUTE BASOPHILS # (AUTO) 0.1 10^3/uL (0.0-0.2); ABSOLUTE EOSINOPHILS # (AUTO) 0.1 10^3/uL (0.0-0.6); ABSOLUTE MONOCYTES (AUTO) 0.4 10^3/uL (0.1-1.4); ABSOLUTE NEUT (AUTO) 5.5 10^3/uL (1.7-8.2); BASOPHILS % (AUTO) 0.8 % (0-2); EOSINOPHILS % (AUTO) 1.4 % (0-6); HEMOGLOBIN 10.1 g/dL (12.0-15.5); LYMPHOCYTES % (AUTO) 14.2 % (13-45); MEAN CORPUSCULAR HEMOGLOBIN 25.4 pg (27.0-33.4); MEAN CORPUSCULAR HGB CONC 32.5 g/dL (32.0-36.0); MEAN CORPUSCULAR VOLUME 78 fl (80-97); PLATELET COUNT 166 10^3/uL (150-450); RED BLOOD COUNT 3.97 10^6/uL (3.72-5.28); RED CELL DISTRIBUTION WIDTH 22.3 % (11.5-14.0); SEGMENTED NEUTROPHILS % (AUTO) 77.6 % (42-78); TOTAL CELLS COUNTED % (AUTO) 100 %; WHITE BLOOD COUNT 7.1 10^3/uL (4.0-10.5)
[2017-12-28 16:36] LABS: UR PRO/CREAT RATIO RESULT 0.5 mg/mg (0.0-0.2); URINE CREATININE 77.1 mg/dL (16-327); URINE PROTEIN 40.3 mg/dL (<12)
[2017-12-28 16:49] LABS: ALANINE AMINOTRANSFERASE 18 U/L (9-52); ALBUMIN 3.1 g/dL (3.5-5.0); ALKALINE PHOSPHATASE 128 U/L (38-126); ANION GAP 8 (5-19); ANISOCYTOSIS 3+; ASPARTATE AMINO TRANSFERASE 22 U/L (14-36); BILIRUBIN,DIRECT 0.1 mg/dL (0.0-0.4); BILIRUBIN,TOTAL 0.3 mg/dL (0.2-1.3); BLOOD UREA NITROGEN 8 mg/dL (7-20); CARBON DIOXIDE 28 mmol/L (22-30); CHLORIDE 102 mmol/L (98-107); GLUCOSE 125 mg/dL (75-110); HYPOCHROMASIA 1+; OVALOCYTES SLIGHT; PLATELET COMMENT ADEQUATE; POIKILOCYTOSIS 1+; POTASSIUM 3.4 mmol/L (3.6-5.0); SODIUM 138.3 mmol/L (137-145); TEAR DROP CELLS SLIGHT; TOTAL PROTEIN 6.7 g/dL (6.3-8.2); TOXIC VACUOLATION PRESENT; URIC ACID 3.5 mg/dL (2.5-6.2)
[2017-12-28] MEDS ORDERED: NIFEDIPINE 30 MG TAB.ER.24 PO SCH (22:00)
[2017-12-29] MEDS ORDERED: NIFEDIPINE 30 MG TAB.ER.24 PO ONE (07:30)
[2017-12-29] MEDS: PRENATAL VITAMIN W DHA CAPSULE PO SCH (10:28)
--- NOTE | 2017-12-29 16:39 | XCELERA REPORT ---
[address] [address] Transthoracic Echocardiogram Report Name: RUFUS RODRÍGUEZ Age: 27 yrs Gender: Female : 1990 Patient Status: Inpatient Patient Location: [address] [place] [address] Study Date: 12/29/2017 02:38 PM Procedure: A complete two-dimensional transthoracic echocardiogram was performed (2D, M-mode, spectral and color flow Doppler). The study was technically good with many images being of high quality. Reason For Study: orthopnea Ordering Physician: JONNIE CORONEL Performed By: Jeny Madison Interpretation Summary The left ventricular ejection fraction is normal. There is moderate concentric left ventricular hypertrophy. The left ventricle is grossly normal size. LV diastolic function could not be adequately assessed. Wall motion cannot be accurately commented on, but no definite regional wall motion abnormalities noted. The right ventricular systolic function is normal. The right atrium is normal in size The left atrial size is normal. There is a trace amount of mitral regurgitation There is no mitral valve stenosis. There is a trace amount of aortic regurgitation There is no aortic valve stenosis There is a trace or physiologic amount of tricuspid regurgitation There is no tricuspid stenosis. The aortic root is not well visualized. The inferior vena cava appeared normal and decreased > 50% with respiration (RAP 5-10 mmHg) Small pericardial effusion. There are no echocardiographic or Doppler indications for cardiac tamponade MMode/2D Measurements & Calculations RVDd: 3.6 cm LVIDd: 5.0 cm FS: 38.1 % Ao root diam: 3.1 cm IVSd: 1.1 cm LVIDs: 3.1 cm EDV(Teich): 119.1 ml Ao root area: 7.5 cm2 LVPWd: 1.3 cm ESV(Teich): 38.1 ml EF(Teich): 68.0 % Doppler Measurements & Calculations MV E max catrachita: MV dec slope: Ao V2 max: LV V1 max P.9 cm/sec 180.1 cm/sec 4.6 mmHg MV A max catrachita: 653.1 cm/sec2 Ao max PG: LV V1 max: 80.4 cm/sec MV dec time: 0.14 sec13.0 mmHg 107.1 cm/sec MV E/A: 1.1 PA V2 max: 153.3 cm/sec PA max P.4 mmHg Left Ventricle The left ventricle is grossly normal size. There is moderate concentric left ventricular hypertrophy. The left ventricular ejection fraction is normal. LV diastolic function could not be adequately assessed. Wall motion cannot be accurately commented on, but no definite regional wall motion abnormalities noted. Right Ventricle The right ventricle is normal size. The right ventricle appears to be hypertrophied. The right ventricular systolic function is normal. Atria The right atrium is normal in size. The left atrial size is normal. Interarterial septum not well visualized and not well dopplered. Cannot comment on ASD/PFO presence. Mitral Valve The mitral valve is grossly normal. There is no mitral valve stenosis. There is a trace amount of mitral regurgitation. Aortic Valve The aortic valve is grossly normal. There is no aortic valve stenosis. There is a trace amount of aortic regurgitation. Tricuspid Valve The tricuspid valve is not well visualized secondary to technical limitations. There is no tricuspid stenosis. There is a trace or physiologic amount of tricuspid regurgitation. Pulmonic Valve The pulmonic valve is not well visualized. Great Vessels The aortic root is not well visualized. The inferior vena cava appeared normal and decreased > 50% with respiration (RAP 5-10 mmHg). Effusions Small pericardial effusion. There are no echocardiographic or Doppler indications for cardiac tamponade. : JONNIE CORONEL > Randolph Staley
--- NOTE | 2017-12-29 19:01 | PDOC PROGRESS REPORT ---
Subjective Progress Note for:: 12/29/17 Subjective:: sleeping, Bipap in place. Pt arousable but returns to sleep fast Reason For Visit: ,HYPERTENSION Physical Exam - Physical Exam Vital Signs: Temp Pulse Resp BP Pulse Ox 98.6 F 100 20 138/82 H 100 12/29/17 15:09 12/29/17 15:09 12/29/17 15:09 12/29/17 15:09 12/29/17 15:09 Pulse Oximeter Continuous Start: 12/29/17 10: 14 Freq: RTQ4 Status: Active Document 12/29/17 13:24 TPO (Rec: 12/29/17 13:26 TPO [email or web address]) Pulse Oximetry Assessment Oxygen Saturation (92-100) 100 Oxygen Delivery Method Bi-pap Fraction of Inspired Oxygen (FIO2) 28 Equipment Usage Initial Set Up Continuous Pulse Oximeter 24 Hour Charge Charge Now Continuous SpO2 Machine # N-6 Intake & Output 12/28/17 12/29/17 12/30/17 06:59 06:59 06:59 Intake Total 1500 940 Output Total 1400 1000 Balance 100 -60 Weight 112.6 kg General appearance: PRESENT: no acute distress - +somnolent but arousable, well- developed, well-nourished Head exam: PRESENT: atraumatic, normocephalic Cardiovascular exam: PRESENT: RRR. ABSENT: diastolic murmur, rubs, systolic murmur Vascular exam: PRESENT: normal capillary refill GI/Abdominal exam: PRESENT: normal bowel sounds, soft, other - gravid. ABSENT: distended, guarding, mass, organolmegaly, rebound, tenderness Rectal exam: PRESENT: deferred Extremities exam: PRESENT: full ROM. ABSENT: calf tenderness, clubbing, pedal edema Musculoskeletal exam: PRESENT: ambulatory Neurological exam: PRESENT: other - asleep with Bipap but arousable Result Laboratory Results: 12/28/17 16:17 12/28/17 16:17 Assessment & Plan - Diagnosis (1) Hypertension Qualifiers: Hypertension type: essential hypertension Qualified Code(s): I10 - Essential (primary) hypertension Is this a current diagnosis for this admission?: Yes Plan: Non compliant with outpatient treatment. Currently admitted for 24 hr UTP and procardia dosing. may need to adjust procardia dosing. However, now with Bipap in place BPs are slightly improved. Will continue to monitor throughout the night. (2) Sleep apnea Qualifiers: Sleep apnea type: other type Qualified Code(s): G47.39 - Other sleep apnea Is this a current diagnosis for this admission?: Yes Plan: per Pulmonology. Appreciate Pulmonology assistance with patient
[2017-12-29 20:35] LABS: URINE PROTEIN 26.1 mg/dL (<12)
[2017-12-29 20:39] LABS: 24 HOUR URINE PROTEIN RESULT 1175 mg/day (42-225)
[2017-12-29] MEDS ORDERED: NIFEDIPINE 30 MG TAB.ER.24 PO SCH (22:00)
[2017-12-30] MEDS: HYDRALAZINE HCL INJ/PF 20 MG/1 ML SDV ONE ×2 (04:10→04:16)
[2017-12-30] MEDS: HYDRALAZINE HCL INJ/PF 20 MG/1 ML SDV IV ONE ×2 (04:12→04:16)
[2017-12-30] MEDS ORDERED: HYDRALAZINE HCL INJ/PF 20 MG/1 ML SDV IV ONE (05:25)
[2017-12-30] MEDS ORDERED: FUROSEMIDE INJ/PF 20 MG/2 ML SDV IV ONE (05:42)
[2017-12-30 05:46] LABS: ABSOLUTE EOSINOPHILS # (AUTO) 0.2 10^3/uL (0.0-0.6); ABSOLUTE LYMPHOCYTES (AUTO) 1.5 10^3/uL (0.5-4.7); ABSOLUTE MONOCYTES (AUTO) 0.6 10^3/uL (0.1-1.4); ABSOLUTE NEUT (AUTO) 5.4 10^3/uL (1.7-8.2); BASOPHILS % (AUTO) 0.4 % (0-2); EOSINOPHILS % (AUTO) 2.4 % (0-6); HEMATOCRIT 32.7 % (36.0-47.0); HEMOGLOBIN 10.6 g/dL (12.0-15.5); LYMPHOCYTES % (AUTO) 19.1 % (13-45); MEAN CORPUSCULAR HEMOGLOBIN 25.6 pg (27.0-33.4); MEAN CORPUSCULAR HGB CONC 32.3 g/dL (32.0-36.0); MEAN CORPUSCULAR VOLUME 79 fl (80-97); MONOCYTES % (AUTO) 8.3 % (3-13); PLATELET COUNT 154 10^3/uL (150-450); RED BLOOD COUNT 4.12 10^6/uL (3.72-5.28); RED CELL DISTRIBUTION WIDTH 22.2 % (11.5-14.0); SEGMENTED NEUTROPHILS % (AUTO) 69.8 % (42-78); TOTAL CELLS COUNTED % (AUTO) 100 %; WHITE BLOOD COUNT 7.8 10^3/uL (4.0-10.5)
[2017-12-30 06:13] LABS: ALANINE AMINOTRANSFERASE 21 U/L (9-52); ALBUMIN 3.1 g/dL (3.5-5.0); ALKALINE PHOSPHATASE 135 U/L (38-126); ANION GAP 9 (5-19); ASPARTATE AMINO TRANSFERASE 19 U/L (14-36); BILIRUBIN,DIRECT 0.2 mg/dL (0.0-0.4); BILIRUBIN,TOTAL 0.4 mg/dL (0.2-1.3); BLOOD UREA NITROGEN 8 mg/dL (7-20); CALCIUM 9.4 mg/dL (8.4-10.2); CARBON DIOXIDE 28 mmol/L (22-30); CHLORIDE 102 mmol/L (98-107); GLUCOSE 120 mg/dL (75-110); POTASSIUM 4.5 mmol/L (3.6-5.0); SODIUM 138.7 mmol/L (137-145); TOTAL PROTEIN 6.7 g/dL (6.3-8.2); URIC ACID 3.3 mg/dL (2.5-6.2)
[2017-12-30] MEDS ORDERED: ACETAMINOPHEN 325 MG TABLET PO ONE (06:19)
[2017-12-30] MEDS ORDERED: ACETAMINOPHEN 325 MG TABLET ONE (06:38)
--- NOTE | 2017-12-30 06:41 | PDOC PROGRESS REPORT ---
Subjective Progress Note for:: 12/30/17 Subjective:: pt seen at 0500. Pt now awake and alert after using Bipap since 1300 approx, denies ARIAS, blurryr vision, RUQ pain, reports lower extremity swelling, reports slept well for 1st time in a long time with Bipap Reason For Visit: ,HYPERTENSION Physical Exam - Physical Exam Vital Signs: Temp Pulse Resp BP Pulse Ox 98.0 F 122 H 24 H 147/87 H 99 12/30/17 03:29 12/30/17 06:15 12/30/17 00:00 12/30/17 06:15 12/30/17 04:00 Pulse Oximeter Continuous Start: 12/29/17 10: 14 Freq: RTQ4 Status: Active Document 12/30/17 04:00 CANDY (Rec: 12/30/17 05:02 LDA [email or web address]) Pulse Oximetry Assessment Oxygen Saturation (92-100) 99 Oxygen Delivery Method Room Air Fraction of Inspired Oxygen (FIO2) 21 Equipment Usage Equipment in Use Continuous SpO2 Machine # n-[id number] Intake & Output 12/28/17 12/29/17 12/30/17 06:59 06:59 06:59 Intake Total 1500 1640 Output Total 1400 2600 Balance 100 -960 Weight 112.6 kg General appearance: PRESENT: no acute distress, well-developed, well-nourished Head exam: PRESENT: atraumatic, normocephalic Pulses: PRESENT: normal dorsalis pedis pul, +2 pedal pulses bilateral GI/Abdominal exam: PRESENT: normal bowel sounds, soft, other - gravid. ABSENT: distended, guarding, mass, organolmegaly, rebound, tenderness Extremities exam: PRESENT: full ROM. ABSENT: calf tenderness, clubbing, pedal edema Musculoskeletal exam: PRESENT: ambulatory Neurological exam: PRESENT: alert, awake, oriented to person, oriented to place , oriented to time, oriented to situation, CN II-XII grossly intact. ABSENT: motor sensory deficit Result Laboratory Results: 12/30/17 05:32 12/29/17 12/30/17 19:43 05:32 Sodium 138.7 Potassium 4.5 Chloride 102 Carbon Dioxide 28 Anion Gap 9 BUN 8 Creatinine 0.41 L Est GFR ( Amer) > 60 Est GFR (Non-Af Amer) > 60 Glucose 120 H Uric Acid 3.3 Calcium 9.4 Total Bilirubin 0.4 AST 19 ALT 21 Alkaline Phosphatase 135 H Total Protein 6.7 Albumin 3.1 L Ur 24 Hour Volume 4500 Ur Total Protein 24 Hr 1175 H Assessment & Plan - Diagnosis (1) Hypertension Qualifiers: Hypertension type: essential hypertension Qualified Code(s): I10 - Essential (primary) hypertension Is this a current diagnosis for this admission?: Yes Plan: Non compliant with outpatient treatment was supposed to be on Procardia. Currently admitted for 24 hr UTP and procardia dosing. 24 hr UTP in August was approx 600 and now is 1100. Pt with known CHTN. Pt has been asymptomatic - no ARIAS/blurry vision/RUQ pain. BPs elevated now that patient is awake - hydralazine 5mg and then 10mg given with good response. RN just called re: patient new complaint of ARIAS at approx 0630. Will treat for ARIAS. If ARIAS does not resolve or labs worsen may need to move to delivery. However, goal would be 37wks unless need to proceed for delivery for symptoms or uncontrolled BPs. Will give lasix and repeat labs today and then re-evaluate patients condition. (2) Sleep apnea Qualifiers: Sleep apnea type: other type Qualified Code(s): G47.39 - Other sleep apnea Is this a current diagnosis for this admission?: Yes Plan: per Pulmonology. Appreciate Pulmonology assistance with patient - Time Time Spent with patient: 15-24 minutes Medications reviewed and adjusted accordingly: Yes Anticipated discharge: Home Within: within 48 hours - Inpatient Certification Based on my medical assessment, after consideration of the patient's comorbidities, presenting symptoms, or acuity I expect that the services needed warrant INPATIENT care.: Yes I certify that my determination is in accordance with my understanding of Medicare's requirements for reasonable and necessary INPATIENT services [42 CFR 412.3e].: Yes Medical Necessity: Failure to Improve With Outpatient Therapy, Need Close Monitoring Due to Risk of Patient Decompensation Post Hospital Care: D/C Screw Cutter Documentation - Plan Summary Plan Summary: needs finished goods planner
[2017-12-30 06:57] LABS: ANISOCYTOSIS 3+; OVALOCYTES 2+; POIKILOCYTOSIS 2+; TARGET CELLS 1+; TOXIC GRANULATION 1+; TOXIC VACUOLATION PRESENT
[2017-12-30 06:58] LABS: PLATELET COMMENT ADEQUATE
[2017-12-30 09:22] LABS: ANION GAP 11 (5-19); BLOOD UREA NITROGEN 8 mg/dL (7-20); CALCIUM 9.3 mg/dL (8.4-10.2); CARBON DIOXIDE 27 mmol/L (22-30); CHLORIDE 101 mmol/L (98-107); GLUCOSE 140 mg/dL (75-110); POTASSIUM 4.1 mmol/L (3.6-5.0); SODIUM 138.8 mmol/L (137-145)
[2017-12-30] MEDS: NIFEDIPINE 30 MG TAB.ER.24 PO SCH ×2 (09:45→21:59)
[2017-12-30] MEDS: PRENATAL VITAMIN W DHA CAPSULE PO SCH (09:46)
[2017-12-30] MEDS: AMOXICILLIN TR/POT CLAVULANATE 500-125 MG TAB PO SCH (21:59)
[2017-12-30] MEDS: FAMOTIDINE 20 MG TABLET PO SCH (21:59)
[2017-12-31] MEDS: AMOXICILLIN TR/POT CLAVULANATE 500-125 MG TAB PO SCH ×2 (05:49→13:54)
--- NOTE | 2017-12-31 07:51 | PDOC PROGRESS REPORT ---
Subjective Progress Note for:: 12/31/17 Subjective:: feels uneasy about going home. recently lost her brother due to cardiac issues. Mother also with several cardiac issues that she wears a "vest" for. Indicates a slight headache that has resolved with rest. Reason For Visit: ,HYPERTENSION Physical Exam - Physical Exam Vital Signs: Temp Pulse Resp BP Pulse Ox 98.0 F 102 H 20 154/82 H 100 12/31/17 04:33 12/31/17 04:33 12/31/17 04:33 12/31/17 04:33 12/31/17 04:33 Pulse Oximeter Continuous Start: 12/29/17 10: 14 Freq: RTQ4 Status: Active Document 12/31/17 03:49 [facility] (Rec: 12/31/17 03:51 [facility] [email or web address]) Pulse Oximetry Assessment Oxygen Saturation (92-100) 97 Oxygen Delivery Method Room Air Fraction of Inspired Oxygen (FIO2) 21 Equipment Usage Equipment Standby Continuous SpO2 Machine # N 6 Intake & Output 12/30/17 12/31/17 01/01/18 06:59 06:59 06:59 Intake Total 1640 2230 Output Total 4100 Balance -2460 2230 General appearance: PRESENT: no acute distress, cooperative Head exam: PRESENT: atraumatic Neurological exam: PRESENT: alert, awake, oriented to person, oriented to place Result Laboratory Results: 12/30/17 05:32 12/30/17 08:53 12/30/17 08:53 Sodium 138.8 Potassium 4.1 Chloride 101 Carbon Dioxide 27 Anion Gap 11 BUN 8 Creatinine 0.34 L Est GFR ( Amer) > 60 Est GFR (Non-Af Amer) > 60 Glucose 140 H Calcium 9.3 Assessment & Plan - Diagnosis (2) Sleep apnea Qualifiers: Sleep apnea type: other type Qualified Code(s): G47.39 - Other sleep apnea Is this a current diagnosis for this admission?: Yes (3) Hypertension Qualifiers: Hypertension type: essential hypertension Qualified Code(s): I10 - Essential (primary) hypertension Is this a current diagnosis for this admission?: Yes (4) Qualifiers: Weeks of gestation: 35 weeks Qualified Code(s): Z3A.35 - 35 weeks gestation of Is this a current diagnosis for this admission?: Yes (5) Proteinuria affecting in second trimester Is this a current diagnosis for this admission?: Yes (6) Tachycardia Is this a current diagnosis for this admission?: Yes - Time Time Spent with patient: 15-24 minutes Medications reviewed and adjusted accordingly: Yes Anticipated discharge: Other Within: Other - Inpatient Certification Based on my medical assessment, after consideration of the patient's comorbidities, presenting symptoms, or acuity I expect that the services needed warrant INPATIENT care.: Yes I certify that my determination is in accordance with my understanding of Medicare's requirements for reasonable and necessary INPATIENT services [42 CFR 412.3e].: Yes Medical Necessity: Failure to Improve With Outpatient Therapy, Significant Comorbidiites Make Outpatient Treatment Too Risky, Need Close Monitoring Due to Risk of Patient Decompensation - Plan Summary Plan Summary: discussed with patient regarding concerns of elevated BPs and her siginificant sleep apnea and tachycardia. Her 24 hour urine does reveal Superimposed pre- eclampsia. Due to her significant risks for decompensation would recommend close monitoring here in the hospital and induce either at 37 wks EGA or sooner if BPs increase to a consistent severe range. (she has had a few severe range pressure 2 days ago but has since improved to the 140-150s/90s range). Due to her comorbidities she is at significant risk for severe pre E/ eclampsia it is better to keep patient in the hospital until delivery.
[2017-12-31] MEDS: FAMOTIDINE 20 MG TABLET PO SCH (09:52)
[2017-12-31] MEDS: PRENATAL VITAMIN W DHA CAPSULE PO SCH (09:52)
[2017-12-31] MEDS: NIFEDIPINE 30 MG TAB.ER.24 PO SCH (09:52)
[2017-12-31 11:46] LABS: FREE T3 3.63 pg/mL (2.77-5.27); FREE T4 (FREE THYROXINE) 0.77 ng/dL (0.78-2.19)
[2017-12-31 11:59] LABS: THYROID STIMULATING HORMONE 1.38 uIU/mL (0.47-4.68)
--- NOTE | 2017-12-31 15:36 | PDOC TRANSFER SUMMARY ---
General Admission Date/PCP: 12/28/17 16:39 JONNIE CORONEL MD Admission Date: 12/28/17 Transfer Date: 12/31/17 Accepting Facility: [facility] Accepting Physician: Marimar Terrell Resuscitation Status: Full Code - Transfer Diagnosis (1) Tachycardia Is this a current diagnosis for this admission?: Yes (2) Non-compliance with treatment Is this a current diagnosis for this admission?: Yes (3) Hypertension Is this a current diagnosis for this admission?: Yes (4) Is this a current diagnosis for this admission?: Yes (5) Proteinuria affecting in second trimester Is this a current diagnosis for this admission?: Yes (6) Sleep apnea Is this a current diagnosis for this admission?: Yes - Transfer Medications Home Medications: No Home Medications 12/29/17 Transfer Medications: Current Medications Amoxicillin/Clavulanate Potassium (Augmentin 500-125 Tablet) 1 tab PO Q8 PATRICK Stop: 01/06/18 21:59 Last Admin: 12/31/17 13:54 Dose: 1 tab Famotidine (Pepcid 20 Mg Tablet) 20 mg PO Q12 PATRICK Stop: 01/29/18 21:59 Last Admin: 12/31/17 09:52 Dose: 20 mg Nifedipine (Procardia Xl 30 Mg Tablet) 60 mg PO Q12 PATRICK Stop: 01/29/18 09:59 Last Admin: 12/31/17 09:52 Dose: 60 mg Vit/Iron/Folic Acid/DHA ( Multi + Dha Capsule) 1 cap PO DAILY PATRICK Stop: 01/28/18 09:59 Last Admin: 12/31/17 09:52 Dose: 1 cap - Allergies Allergies/Adverse Reactions: No Known Allergies Allergy (Verified 12/29/17 10:31) - Diet/Activity Discharge Diet: Cardiac Discharge Activity: No Lifting Over 10 Pounds, Pelvic Rest Hospital Course Hospital Course: Ms Graf was admitted to treat her hypertension and evaluate for preeclampsia. She was found to have sleep apnea as well and a resting tachycardia. She has also had a cardiac echo during this admission. Anesthesia as well as [facility] has requested transfer to tertiary care for further evaluation and delivery. Physical Exam Vital Signs: Temp Pulse Resp BP Pulse Ox 97.5 F 106 H 24 H 149/88 H 99 12/31/17 11:19 12/31/17 11:19 12/31/17 11:19 12/31/17 11:19 12/31/17 12:31 Pulse Oximeter Continuous Start: 12/29/17 10: 14 Freq: RTQ4 Status: Active Document 12/31/17 12:31 TPO (Rec: 12/31/17 12:32 TPO [email or web address]) Pulse Oximetry Assessment Oxygen Saturation (92-100) 99 Oxygen Delivery Method Room Air Fraction of Inspired Oxygen (FIO2) 21 Equipment Usage Equipment in Use Continuous SpO2 Machine # N-6 Intake & Output 12/30/17 12/31/17 01/01/18 06:59 06:59 06:59 Intake Total 1640 2230 Output Total 4100 Balance -2460 2230 General appearance: PRESENT: mild distress, obese Head exam: PRESENT: atraumatic, normocephalic Cardiovascular exam: PRESENT: tachycardia - gravid abdomen. Psychiatric exam: PRESENT: depressed, flat affect Skin exam: PRESENT: dry, intact, warm. ABSENT: cyanosis, rash Results Laboratory Results: 12/30/17 05:32 12/30/17 08:53 12/31/17 10:17 TSH 1.38 Free T4 0.77 L Free T3 pg/mL 3.63 Impressions: She has chronic HTN and now superimposed preeclampsia. She was not willing to take her BP meds at home but now being treated in the hospital. She has been found to have significant sleep apnea. Anesthesia has seen her Plan Discharge Plan: Plan transfer to [facility] for evaluation and eventually delivery. Time Spent: Greater than 30 Minutes
[2017-12-31 16:48] VITALS: BP 158/98
== END 2017-12-31 19:21 | disposition short-term general hospital (02) | DRG 832 ==
LOC: LC 14:27 → LR 16:39 → OBSVTOIN 16:39 → 2S 17:25
PROVIDERS: ADMIT Obstetrics & Gynecology; ATTEND Obstetrics & Gynecology
PROC: 4A1HXCZ Monitoring of Products of Conception, Cardiac Rate, External Approach (ICD-10-PCS; 2017-12-28)
PROC: 5A09457 Assistance with Respiratory Ventilation, 24-96 Consecutive Hours, Continuous Positive Airway Pressure (ICD-10-PCS; principal; 2017-12-29)
DX: O11.3 Pre-existing hypertension with pre-eclampsia, third trimester (principal); O99.413 Diseases of the circulatory system complicating pregnancy, third trimester; O10.913 Unspecified pre-existing hypertension complicating pregnancy, third trimester; O26.893 Other specified pregnancy related conditions, third trimester; G47.30 Sleep apnea, unspecified; R00.0 Tachycardia, unspecified; Z91.19 Patient's noncompliance with other medical treatment and regimen; Z3A.35 35 weeks gestation of pregnancy
CPT/HCPCS: 36415; 59025; 80048; 80053; 80307; 81001; 82570; 83615; 84156; 84439; 84443; 84481; 84550; 85025; 86850; 86870; 86900; 86901; 87077; 87081; 93306; 94660; 94762; J0360; J1940; J3490

== ENCOUNTER 2018-06-16 17:43 | Emergency (ER) | payer SELFPAY ==
[2018-06-16] MEDS ORDERED: ASPIRIN 81 MG TABLET, CHEWABLE PO ONE (18:03)
--- NOTE | 2018-06-16 18:30 | RADIOLOGY REPORT (SQ) ---
EXAM DESCRIPTION: CHEST SINGLE VIEW COMPLETED DATE/TIME: 06/16/2018 6:22 pm REASON FOR STUDY: CHEST PAIN ELEVATED BP COMPARISON: AP chest 05/02/2016 EXAM PARAMETERS: NUMBER OF VIEWS: One view. TECHNIQUE: Single frontal radiographic view of the chest acquired. RADIATION DOSE: NA LIMITATIONS: None. FINDINGS: LUNGS AND PLEURA: No opacities, masses or pneumothorax. No pleural effusion. MEDIASTINUM AND HILAR STRUCTURES: No masses. Contour normal. HEART AND VASCULAR STRUCTURES: Heart normal in size. Normal vasculature. BONES: No acute findings. HARDWARE: None in the chest. OTHER: No other significant finding. IMPRESSION: NO ACUTE RADIOGRAPHIC FINDING IN THE CHEST. TECHNICAL DOCUMENTATION: JOB ID: [id number] [employer]- All Rights Reserved Reading location - IP/workstation name: [email or web address]
[2018-06-16] MEDS ORDERED: METOCLOPRAMIDE HCL INJ/PF 10 MG/2 ML SDV IV ONE (18:32)
[2018-06-16] MEDS ORDERED: NORMAL SALINE 1000 ML 1,000 ML IV ONE (18:32)
--- NOTE | 2018-06-16 18:36 | ER Document Report ---
ED General - General Chief Complaint: Chest Pain Stated Complaint: HEADACHE,CHEST PAIN Time Seen by Provider: 06/16/18 18:25 Primary Care Provider: BULL MANN [Primary Care Provider] - Follow up as needed Notes: Patient is a 28-year-old female with a past medical history of essential hypertension not currently treated presents with multiple complaints. She states that her main concern is that she has been having a headache on and off for the past 4 days typical of one of her migraine headaches. She regards it as being severe, global, throbbing headache worsened by lights, sound movement. Took some ibuprofen with moderate relief. States the headache was gradual in onset and progressively worsening throughout the day. Denies any acute onset of the headache. No history of aneurysms. Has a headache similar to this many times in the past. She also complains of chest pain. She describes this as being a pain in her lower sternal region that is a grasping, squeezing type sensation. Mild to moderate in nature, constant since onset approximately 6 hours ago. No history of cardiac pathology, DVT or pulmonary embolus. Does not take any form of supplemental estrogen. Does state that the pain is however worsened by deep inspiration. Nothing has been noted to improve the discomfort. TRAVEL OUTSIDE OF THE [place] IN LAST 30 DAYS: No - Related Data Allergies/Adverse Reactions: No Known Allergies Allergy (Verified 12/29/17 10:31) Past Medical History - General Information source: Patient - Social History Smoking Status: Never Smoker Frequency of alcohol use: None Drug Abuse: None Lives with: Family Family History: Arthritis, CAD, CVA, DM, Hyperlipidemia, Hypertension, Malignancy, Thyroid Disfunction - Past Medical History Cardiac Medical History: Reports: Hx Hypertension Pulmonary Medical History: Reports: Hx Sleep Apnea Renal/ Medical History: Denies: Hx End Stage Renal Disease, Hx Peritoneal Dialysis Skin Medical History: Denies Hx Eczema Traumatic Medical History: Denies: Hx Traumatic Brain Injury Infectious Medical History: Reports: Hx HIV - Immunizations Hx Diphtheria, Pertussis, Tetanus Vaccination: Yes - unknown last Review of Systems - Review of Systems Notes: Constitutional: Negative for fever. HENT: Negative for sore throat. Eyes: Negative for visual changes. Cardiovascular: Positive for chest pain. Respiratory: Negative for shortness of breath. Gastrointestinal: Negative for abdominal pain, vomiting or diarrhea. Genitourinary: Negative for dysuria. Musculoskeletal: Negative for back pain. Skin: Negative for rash. Neurological: Positive for headache 10 point ROS negative except as marked above and in HPI. Physical Exam - Vital signs Vitals: Temp Pulse Resp BP 98.3 F 110 H 20 164/122 H 06/16/18 17:57 06/16/18 17:57 06/16/18 17:57 06/16/18 17:57 Interpretation: Hypertensive, Tachycardic Notes: PHYSICAL EXAMINATION: GENERAL: Well-appearing, well-nourished and in no acute distress. HEAD: Atraumatic, normocephalic. EYES: Pupils equal round and reactive to light, extraocular movements intact, sclera anicteric, conjunctiva are normal. ENT: nares patent, oropharynx clear without exudates. Moist mucous membranes. NECK: Normal range of motion, supple without lymphadenopathy LUNGS: Breath sounds clear to auscultation bilaterally and equal. No wheezes rales or rhonchi. HEART: Regular tachycardia without murmurs ABDOMEN: Soft, nontender, normoactive bowel sounds. No guarding, no rebound. No masses appreciated. EXTREMITIES: Normal range of motion, no pitting or edema. No cyanosis. NEUROLOGICAL: Face symmetric. Tongue protrudes midline. Extraocular motions intact. Pupils are 2 mm and equally reactive. Normal speech, normal gait. 5 out of 5 strength in both the distal and proximal upper and lower extremities bilaterally. Sensation is grossly intact throughout. Finger to nose testing normal. Pronator drift normal. PSYCH: Normal mood, normal affect. SKIN: Warm, Dry, normal turgor, no rashes or lesions noted. Course - Re-evaluation Re-evalutation: 06/16/18 18:34 Presentation of chest pain in an otherwise well appearing patient. Low clinical suspicion for ACS given clinical history, exam, EKG without ST elevations or depressions, and negative initial troponin. HEART score less than or equal to 3. Will repeat delta troponin III hours after initial. Patient is unable to be excluded by PERC criteria due to tachycardia and her clinical history is somewhat worrisome for pulmonary embolus given conservatory chest discomfort. D-dimer pending. CXR without evidence of pneumothorax or pneumonia. No widened mediastinum. Aortic dissection also seems unlikely given history, symmetric pulses, CXR, and vitals. In regards to the patient's headache: Presentation of a headache that appears to be most consistent with tension versus migrainous type headache. Headache was not maximal in onset, patient has no focal neurologic deficits, no nuchal rigidity, vital signs within normal limits, no papilledema, and patient is overall well in appearance. Based on clinical history and examination I do not suspect an acute subarachnoid hemorrhage, dural venous sinus thrombosis, acute meningitis, or intercranial mass. Given my low clinical suspicion for any acute life-threatening etiology, I do not feel advanced neuro imaging is indicated at this time. Will provide metoclopramide and reassess 06/16/18 22:03 Patient's headache is completely resolved. Chest pain likewise improved. CT of the chest is obtained d-dimer was elevated and unfortunately the contrast bolus was not well-timed resulting in suboptimal visualization of the pulmonary arteries. However the main branches of the pulmonary arteries were well visualized and did not demonstrate any evidence of acute pulmonary embolus. I am not able to reobtain the scan as the patient did receive a full contrast b olus and will not be of the reach obtain the scan within 24 hours. However at this point all forms of PE except subsegmental appear to be excluded per radiology report. Given that patient is no longer tachycardic, clinically improved, and there is no evidence of mainstem PEs I do believe that she is safe for discharge home. I have advised her of the suboptimal timing of the contrast bolus and the lobe real possibility that she could have a subsegmental pulmonary embolus and have asked that she please follow-up with her primary care doctor within the next 24-48 hours. - Vital Signs Vital signs: Temp Pulse Resp BP Pulse Ox 98.3 F 110 H 18 164/122 H 97 06/16/18 17:57 06/16/18 17:57 06/16/18 19:01 06/16/18 17:57 06/16/18 20:18 - Laboratory Result Diagrams: 06/16/18 18:30 06/16/18 18:30 Laboratory results interpreted by me: 06/16/18 06/16/18 06/16/18 18:30 18:30 18:30 Hgb 10.6 L Hct 33.6 L MCV 70 L MCH 22.2 L MCHC 31.6 L RDW 19.1 H D-Dimer 1.85 H Potassium 3.2 L Carbon Dioxide 34 H Glucose 133 H - Diagnostic Test Radiology reviewed: Image reviewed, Reports reviewed Radiology results interpreted by me: 06/16/18 18:36 Chest x-ray: No acute infiltrate or pneumothorax - EKG Interpretation by Me Additional EKG results interpreted by me: 06/16/18 18:36 Sinus tachycardia, rate 101. No ST elevations or depressions. QTC is 472. Discharge - Discharge Clinical Impression: Chest discomfort Acute headache Qualifiers: Headache type: unspecified Intractability: not intractable Qualified Code(s): R51 - Headache Condition: Good Disposition: HOME, SELF-CARE Additional Instructions: Your blood work and CT scan are normal today. However as we discussed the timing of the contrast on your CT scan was not ideal and so there is a possibility that she could have a small pulmonary embolus not visualized on your CAT scan. Because of this I would like you to follow-up with your primary care doctor or return to the emergency department within the next 24 hours for reassessment and possible repeat imaging to definitively exclude this diagnosis. Your headache is improved with treatment here in the emergency department and does not appear to be from a dangerous cause of headache. Return if you develop worsening chest discomfort, increased shortness of breath, began coughing blood, pass out, develop weakness or numbness, or have any other symptoms that are concerning to you. Referrals: LOCALMD,NO [Primary Care Provider] - Follow up tomorrow
[2018-06-16 19:17] LABS: ABSOLUTE EOSINOPHILS # (AUTO) 0.1 10^3/uL (0.0-0.6); ABSOLUTE LYMPHOCYTES (AUTO) 1.9 10^3/uL (0.5-4.7); ABSOLUTE MONOCYTES (AUTO) 0.6 10^3/uL (0.1-1.4); ABSOLUTE NEUT (AUTO) 4.4 10^3/uL (1.7-8.2); BASOPHILS % (AUTO) 0.4 % (0-2); EOSINOPHILS % (AUTO) 1.5 % (0-6); HEMATOCRIT 33.6 % (36.0-47.0); HEMOGLOBIN 10.6 g/dL (12.0-15.5); LYMPHOCYTES % (AUTO) 26.8 % (13-45); MEAN CORPUSCULAR HEMOGLOBIN 22.2 pg (27.0-33.4); MEAN CORPUSCULAR HGB CONC 31.6 g/dL (32.0-36.0); MEAN CORPUSCULAR VOLUME 70 fl (80-97); MONOCYTES % (AUTO) 8.1 % (3-13); PLATELET COUNT 210 10^3/uL (150-450); RED BLOOD COUNT 4.79 10^6/uL (3.72-5.28); RED CELL DISTRIBUTION WIDTH 19.1 % (11.5-14.0); SEGMENTED NEUTROPHILS % (AUTO) 63.2 % (42-78); TOTAL CELLS COUNTED % (AUTO) 100 %
[2018-06-16 19:36] LABS: ALANINE AMINOTRANSFERASE 25 U/L (9-52); ALKALINE PHOSPHATASE 119 U/L (38-126); ANION GAP 8 (5-19); ASPARTATE AMINO TRANSFERASE 21 U/L (14-36); BILIRUBIN,DIRECT 0.2 mg/dL (0.0-0.4); BILIRUBIN,TOTAL 0.4 mg/dL (0.2-1.3); BLOOD UREA NITROGEN 15 mg/dL (7-20); CALCIUM 9.8 mg/dL (8.4-10.2); CARBON DIOXIDE 34 mmol/L (22-30); CHLORIDE 98 mmol/L (98-107); GLUCOSE 133 mg/dL (75-110); POTASSIUM 3.2 mmol/L (3.6-5.0); SODIUM 140.4 mmol/L (137-145); TOTAL PROTEIN 8.1 g/dL (6.3-8.2)
--- NOTE | 2018-06-16 21:28 | RADIOLOGY REPORT (SQ) ---
EXAM DESCRIPTION: CT CHEST ANGIOGRAPHY WITHOUT THEN WITH IV CONTRAST COMPLETED DATE/TME: 06/16/2018 19:56 CLINICAL HISTORY: 28 years, Female, eval pe COMPARISON: None. TECHNIQUE: CT chest angiography was performed following intravenous administration of contrast. Multiplanar reformatted images were provided. 3-D reformatted images were performed on an independent workstation (to include sagittal and coronal MIPS). Images stored on PACS. All CT scanners at this facility use dose modulation, iterative reconstruction, and/or weight based dosing when appropriate to reduce radiation dose to as low as reasonably achievable (ALARA). [facility]: Dose Right [facility]: CareDose [facility]: Dose Right [facility]: Teradose 4D [facility]: [employer] LIMITATIONS: None. FINDINGS: Central airways are patent. Lungs are clear. Mediastinal windows show soft tissue density within the anterior mediastinum, likely corresponding to residual thymus given the patient's age. Heart shows no suspicious abnormality. The study is limited for the evaluation of pulmonary emboli secondary to contrast bolus timing. No large central filling defects are identified within the main pulmonary artery or right/left pulmonary arteries. Evaluation of the liver parenchyma reveals ill-defined hypodense lesion located within the dome of the left hepatic lobe measuring 1.4 x 1.2 cm in size on image 86 of series 3. No additional suspicious findings are evident within the imaged upper abdomen. There is a mildly enlarged left axillary lymph node on image 27 of series 3 measuring 1.2 x 1.8 cm in size. An additional mildly enlarged right axillary lymph node is also evident measuring 1.6 x 1.0 cm in size on image 38 of series 3. Bone windows show no destructive osseous lesions. IMPRESSION: Substantially limited examination secondary to inadequate contrast bolus timing. No large central filling defects identified. Otherwise, clear lungs. Ill-defined hypodense lesion located within the dome of the left hepatic lobe. In the absence of known primary malignancy or underlying chronic liver disease, this most likely represents a benign lesion such as hemangioma. This could be confirmed with nonemergent biphasic CT of the abdomen or multiphasic liver MR. Mild bilateral axillary lymph node enlargement, nonspecific. TECHNICAL DOCUMENTATION: Quality ID # [id number]: Final reports with documentation of one or more dose reduction techniques (e.g., Automated exposure control, adjustment of the mA and/or kV according to patient size, use of iterative reconstruction technique) copyright 2011 [employer]- All Rights Reserved
[2018-06-16] MEDS ORDERED: KETOROLAC TROMETHAMINE INJ/PF 30 MG/1 ML SDV IV ONE (22:01)
[2018-06-16] MEDS ORDERED: LIDOCAINE 5% (700 MG) TRANSDERMAL ADH..PATCH TP ONE ×2 (22:01)
[2018-06-16 22:28] VITALS: BP 151/90
--- NOTE | 2018-06-17 07:48 | EKG REPORT ---
SEVERITY:- ABNORMAL ECG - SINUS TACHYCARDIA NONSPECIFIC ST-T CHANGES, DIFFUSE : Confirmed by: Sumanth Childesr MD 17-Jun-2018 07:48:38
== END 2018-06-16 22:34 | disposition home or self-care (01) ==
LOC: ER 17:43
DX: R07.9 Chest pain, unspecified (principal); R51 Headache; I10 Essential (primary) hypertension; R00.0 Tachycardia, unspecified; R79.1 Abnormal coagulation profile; Z21 Asymptomatic human immunodeficiency virus [HIV] infection status
CPT/HCPCS: 93005; 99285; 36415; 84703; 85025; 80053; 84484; 85379; 71045; 71275; 93010; J1885; J2765; J7030

== ENCOUNTER 2018-06-18 10:38 | Emergency (ER) | payer SELFPAY ==
[2018-06-18] MEDS ORDERED: ASPIRIN 81 MG TABLET, CHEWABLE PO ONE (11:19)
--- NOTE | 2018-06-18 11:21 | ER Document Report ---
ED Medical Screen (RME) - General Chief Complaint: High Blood Pressure Stated Complaint: BLOOD PRESSURE ISSUES Time Seen by Provider: 06/18/18 11:17 Primary Care Provider: BULL MANN [Primary Care Provider] - Follow up as needed Mode of Arrival: Ambulatory Information source: Patient Notes: Patient presents complaining of left-sided chest pain for the past week that worsened over the past 2 days. Patient does complain of shortness of breath and pain with inspiration. Patient reports elevated blood pressure reading of 209/122 at home. Patient states she was here 2 days ago for this complaint and was told that there is a possibility that she may have a PE. hx: Hypertension I have greeted and performed a rapid initial assessment of this patient. A comprehensive ED assessment and evaluation of the patient, analysis of test results and completion of the medical decision making process will be conducted by additional ED providers. TRAVEL OUTSIDE OF THE [place] IN LAST 30 DAYS: No - Related Data Allergies/Adverse Reactions: No Known Allergies Allergy (Verified 12/29/17 10:31) Past Medical History - Social History Family history: Reviewed & Not Pertinent - Past Medical History Cardiac Medical History: Reports: Hx Hypertension Pulmonary Medical History: Reports: Hx Sleep Apnea Renal/ Medical History: Denies: Hx End Stage Renal Disease, Hx Peritoneal Dialysis Skin Medical History: Denies Hx Eczema Traumatic Medical History: Denies: Hx Traumatic Brain Injury Infectious Medical History: Reports: Hx HIV - Immunizations Hx Diphtheria, Pertussis, Tetanus Vaccination: Yes - unknown last History of Influenza Vaccine for 11/2016 - 04/2017 Season: Yes Physical Exam - Vital signs Vitals: Temp Pulse Resp BP Pulse Ox 98.0 F 93 14 152/97 H 100 06/18/18 10:43 06/18/18 10:43 06/18/18 10:43 06/18/18 10:43 06/18/18 10:43 - Respiratory Respiratory status: No respiratory distress Chest status: Pain with cough, Pain with deep breathing Breath sounds: Nonproductive cough Course - Vital Signs Vital signs: Temp Pulse Resp BP Pulse Ox 98.0 F 93 14 152/97 H 100 06/18/18 10:43 06/18/18 10:43 06/18/18 10:43 06/18/18 10:43 06/18/18 10:43 Doctor's Discharge - Discharge Referrals: LOCALMD,NO [Primary Care Provider] - Follow up as needed
--- NOTE | 2018-06-18 11:58 | RADIOLOGY REPORT (SQ) ---
EXAM DESCRIPTION: CHEST 2 VIEWS COMPLETED DATE/TIME: 06/18/2018 11:49 am REASON FOR STUDY: cp COMPARISON: 06/16/2018 EXAM PARAMETERS: NUMBER OF VIEWS: two views TECHNIQUE: Digital Frontal and Lateral radiographic views of the chest acquired. RADIATION DOSE: NA LIMITATIONS: none FINDINGS: LUNGS AND PLEURA: No opacities, masses or pneumothorax. No pleural effusion. MEDIASTINUM AND HILAR STRUCTURES: No masses or contour abnormalities. HEART AND VASCULAR STRUCTURES: Heart normal size. No evidence for failure. BONES: No acute findings. HARDWARE: None in the chest. OTHER: No other significant finding. IMPRESSION: No acute abnormality of the lungs. No radiographic findings to explain chest pain. TECHNICAL DOCUMENTATION: JOB ID: [id number] [employer]- All Rights Reserved Reading location - IP/workstation name: [email or web address]
[2018-06-18 12:22] LABS: ABSOLUTE EOSINOPHILS # (AUTO) 0.1 10^3/uL (0.0-0.6); ABSOLUTE LYMPHOCYTES (AUTO) 1.9 10^3/uL (0.5-4.7); ABSOLUTE MONOCYTES (AUTO) 0.4 10^3/uL (0.1-1.4); ABSOLUTE NEUT (AUTO) 3.1 10^3/uL (1.7-8.2); BASOPHILS % (AUTO) 0.6 % (0-2); HEMATOCRIT 35.6 % (36.0-47.0); HEMOGLOBIN 11.3 g/dL (12.0-15.5); LYMPHOCYTES % (AUTO) 34.2 % (13-45); MEAN CORPUSCULAR HEMOGLOBIN 22.1 pg (27.0-33.4); MEAN CORPUSCULAR HGB CONC 31.7 g/dL (32.0-36.0); MEAN CORPUSCULAR VOLUME 70 fl (80-97); MONOCYTES % (AUTO) 6.8 % (3-13); PLATELET COUNT 218 10^3/uL (150-450); RED CELL DISTRIBUTION WIDTH 19.8 % (11.5-14.0); SEGMENTED NEUTROPHILS % (AUTO) 56.4 % (42-78); TOTAL CELLS COUNTED % (AUTO) 100 %; WHITE BLOOD COUNT 5.4 10^3/uL (4.0-10.5)
--- NOTE | 2018-06-18 12:28 | EKG REPORT ---
SEVERITY:- ABNORMAL ECG - SINUS RHYTHM PROBABLE LEFT VENTRICULAR HYPERTROPHY NONSPECIFIC ST-T CHANGES DIFFUSE : Confirmed by: Sumanth Childers MD 18-Jun-2018 12:27:34
[2018-06-18 12:51] LABS: ALANINE AMINOTRANSFERASE 27 U/L (9-52); ALBUMIN 4.1 g/dL (3.5-5.0); ALKALINE PHOSPHATASE 126 U/L (38-126); ANION GAP 9 (5-19); ASPARTATE AMINO TRANSFERASE 20 U/L (14-36); BILIRUBIN,DIRECT 0.2 mg/dL (0.0-0.4); BILIRUBIN,TOTAL 0.5 mg/dL (0.2-1.3); BLOOD UREA NITROGEN 12 mg/dL (7-20); CALCIUM 9.5 mg/dL (8.4-10.2); CARBON DIOXIDE 32 mmol/L (22-30); CHLORIDE 100 mmol/L (98-107); CREATINE KINASE 152 U/L (30-135); GLUCOSE 81 mg/dL (75-110); LIPASE 109.7 U/L (23-300); SODIUM 140.8 mmol/L (137-145); TOTAL PROTEIN 8.5 g/dL (6.3-8.2)
[2018-06-18] MEDS ORDERED: POTASSIUM CHLORIDE 10 MEQ CAPSULE.ER PO ONE (12:59)
[2018-06-18 13:01] LABS: TROPONIN I < 0.012 ng/mL
--- NOTE | 2018-06-18 15:20 | ER Document Report ---
ED General - General Chief Complaint: High Blood Pressure Stated Complaint: BLOOD PRESSURE ISSUES Time Seen by Provider: 06/18/18 11:17 Primary Care Provider: BULL MANN [Primary Care Provider] - Follow up as needed Mode of Arrival: Ambulatory Notes: 28-year-old female seen here 2 days ago for the same complaint presents for left-sided chest pain that has gotten worse. She states it is constant and stabbing and is worse with breathing. She has associated shortness of breath and pain on inspiration. At home she took her blood pressure was 209/122. CTA chest was done 2 days ago which was negative for a PE. She states she feels cold but has no fevers, denies nausea or diaphoresis, denies abdominal pain, urinary symptoms, constipation, or any other complaints. TRAVEL OUTSIDE OF THE [place] IN LAST 30 DAYS: No - Related Data Allergies/Adverse Reactions: No Known Allergies Allergy (Verified 06/18/18 11:22) Past Medical History - General Information source: Patient - Social History Smoking Status: Never Smoker Chew tobacco use (# tins/day): No Frequency of alcohol use: None Drug Abuse: None Family History: Arthritis, CAD, CVA, DM, Hyperlipidemia, Hypertension, Malignancy, Thyroid Disfunction Patient has suicidal ideation: No Patient has homicidal ideation: No - Past Medical History Cardiac Medical History: Reports: Hx Hypertension Pulmonary Medical History: Reports: Hx Sleep Apnea Renal/ Medical History: Denies: Hx End Stage Renal Disease, Hx Peritoneal Di alysis Skin Medical History: Denies Hx Eczema Traumatic Medical History: Denies: Hx Traumatic Brain Injury Infectious Medical History: Reports: Hx HIV - Immunizations Hx Diphtheria, Pertussis, Tetanus Vaccination: Yes - unknown last Review of Systems - Review of Systems Constitutional: See HPI EENT: No symptoms reported Cardiovascular: See HPI Respiratory: See HPI Gastrointestinal: See HPI Genitourinary: No symptoms reported Female Genitourinary: No symptoms reported Musculoskeletal: See HPI Skin: No symptoms reported Hematologic/Lymphatic: No symptoms reported Neurological/Psychological: No symptoms reported Physical Exam - Vital signs Vitals: Temp Pulse Resp BP Pulse Ox 98.0 F 93 14 152/97 H 100 06/18/18 10:43 06/18/18 10:43 06/18/18 10:43 06/18/18 10:43 06/18/18 10:43 - Notes Notes: PHYSICAL EXAMINATION: Reviewed vital signs and charting by RN GENERAL: Alert, interacts well. No acute distress. HEAD: Normocephalic, atraumatic. EYES: Pupils equal and round. Extraocular movements intact. ENT: Oral mucosa moist, tongue midline. NECK: Full range of motion. Supple. Trachea midline. LUNGS: Clear to auscultation bilaterally, no wheezes, rales, or rhonchi. No respiratory distress. HEART: Regular rate and rhythm. No murmur ABDOMEN: soft, non-tender. Non-distended. Bowel sounds present. no McBurney's point tenderness, no Aguilar sign. EXTREMITIES: Moves all 4 extremities spontaneously. No edema, No cyanosis. Normal distal neurovascular exam BACK: No CVAT NEUROLOGIC: Oriented and appropriate. Normal speech. PSYCH: Normal affect, normal mood. SKIN: Warm, dry, normal turgor. No rashes or lesions noted. Course - Re-evaluation Re-evalutation: 06/18/18 15:58 Well-appearing. She had a positive d-dimer 2 days ago prompting a CTA chest which did not show any evidence of pulmonary embolism. Patient returns with worsening symptoms. Pain is reproducible and worse with inspiration making the likelihood for pulmonary embolism, aortic aneurysm, aortic dissection, or acute myocardial infarction less likely. Will briefly discuss this with my attending. 06/18/18 16:10 Concerned that it was a substandard CTA chest 2 days ago after discussing with Dr. Lorenzo. His recommendation is to repeat considering she had a positive d- dimer and the radiologist report stating such. I discussed this at length with the patient telling her the risks versus benefits and she agreed to 06/18/18 18:17 Repeat CTA chest complaint and negative for any pulmonary emboli. At this time symptoms are unrelated to any pulmonary vascular - Vital Signs Vital signs: Temp Pulse Resp BP Pulse Ox 98.0 F 93 14 152/97 H 100 06/18/18 10:43 06/18/18 10:43 06/18/18 10:43 06/18/18 10:43 06/18/18 10:43 - Laboratory Result Diagrams: 06/18/18 12:07 06/18/18 12:07 Laboratory results interpreted by me: 06/18/18 06/18/18 12:07 12:07 Hgb 11.3 L Hct 35.6 L MCV 70 L MCH 22.1 L MCHC 31.7 L RDW 19.8 H Potassium 3.0 L* Carbon Dioxide 32 H Creatinine 0.44 L Creatine Kinase 152 H Total Protein 8.5 H Discharge - Discharge Clinical Impression: Chest pain Qualifiers: Chest pain type: unspecified Qualified Code(s): R07.9 - Chest pain, unspecified Condition: Good Disposition: HOME, SELF-CARE Additional Instructions: He was seen in the emergency department this afternoon for chest pain and shortness of breath. Unfortunately, as we discussed, we need to do the repeat CTA. Fortunately, though, the results were negative which is very reassuring. It is unclear why you are having this chest pain and shortness of breath. It most likely is musculoskeletal in nature. He can try taking Motrin 600 mg every 6 hours [id number] with food or milk. You can also try heating pad as needed. If you develop any severe chest pain acute severe shortness of breath, Referrals: LOCALMD,NO [Primary Care Provider] - Follow up as needed
--- NOTE | 2018-06-18 18:03 | RADIOLOGY REPORT (SQ) ---
EXAM DESCRIPTION: CTA CHEST COMPLETED DATE/TIME: 06/18/2018 5:30 pm REASON FOR STUDY: CP/SOB COMPARISON: Chest x-ray 06/18/2018 CTA 06/16/2018 TECHNIQUE: CT scan of the chest performed using helical scanning technique with dynamic intravenous contrast injection. Images reviewed with lung, soft tissue and bone windows. Reconstructed coronal and sagittal MPR images reviewed. Additional 3 dimensional post-processing performed to develop Maximal Intensity Projection images (DE P). All images stored on PACS. All CT scanners at this facility use dose modulation, iterative reconstruction, and/or weight based d osing when appropriate to reduce radiation dose to as low as reasonably achievable (ALARA). [facility]: Dose Right [facility]: CareDose [facility]: Dose Right [facility]: Teradose 4D [facility]: [employer] CONTRAST TYPE AND DOSE: contrast/concentration: Isovue 350.00 mg/ml; Total Contrast Delivered: 161.0 ml; Total Saline Delivered: 155.0 ml Patient was reinjected. Poor bolus on the initial study. Contrast bolus adequate for pulmonary arteries and aorta. RENAL FUNCTION: None required. The patient is less than 50 years old. RADIATION DOSE: CT Rad equipment meets quality standard of care and radiation dose reduction techniq ues were employed. CTDIvol: 22.0 - 52.9 mGy. DLP: 1620 mGy-cm. . LIMITATIONS: None. FINDINGS: LUNGS AND PLEURA: No masses, infiltrates, or pneumothorax. No pleural effusions or pleura l calcifications. AORTA AND GREAT VESSELS: No aneurysm. Contrast bolus not optimized for the aorta. HEART: No pericardial effusion. No significant coronary artery calcifications. PULMONARY ARTERIES: No emboli visualized in the main pulmonary arteries or the segmental branches. HILAR AND MEDIASTINAL STRUCTURES: No identified masses or abnormal nodes. HARDWARE: None in the chest. UPPER ABDOMEN: No significant findings. Limited exam. THYROID AND OTHER SOFT TISSUES: No masses. No adenopathy. BONES: No acute or significant finding. 3D MIPS: Confirm above findings. OTHER: No other significant finding. IMPRESSION: NORMAL CTA OF THE CHEST. NO PULMONARY EMBOLI. COMMENT: Quality ID # 436: Final reports with documentation of one or more dose reduction techniques (e.g., Automated exposure control, adjustment of the mA and/or kV according to patient size, use of iterative reconstruction technique) TECHNICAL DOCUMENTATION: JOB ID: [id number]- All Rights Reserved Reading location - IP/workstation name: [email or web address]
[2018-06-18 18:38] VITALS: BP 149/69
== END 2018-06-18 18:38 | disposition home or self-care (01) ==
LOC: ER 10:38
DX: R07.9 Chest pain, unspecified (principal); R06.02 Shortness of breath; I10 Essential (primary) hypertension; Z21 Asymptomatic human immunodeficiency virus [HIV] infection status
CPT/HCPCS: 36415; 71046; 71275; 80053; 82550; 82553; 83690; 83735; 84484; 85025; 93005; 93010; 99284

== ENCOUNTER 2018-10-17 18:29 | Observation (INO) | payer SELFPAY ==
[2018-10-17] MEDS ORDERED: NORMAL SALINE 1000 ML 1,000 ML IV ONE (19:03)
--- NOTE | 2018-10-17 19:06 | ER Document Report ---
ED Medical Screen (RME) - General Chief Complaint: Abscess Stated Complaint: POSSIBLE ABSCESS/LOW BACK Time Seen by Provider: 10/17/18 18:55 Primary Care Provider: BULL MANN [Primary Care Provider] - Follow up as needed Mode of Arrival: Ambulatory Information source: Patient Notes: 28-year-old female presents to ED for abscess to the rectal cleft. There is redness and firmness to both buttocks at the area. Patient is alert oriented respirations regular and unlabored speaking in full sentences. She states is been there for about 4 days. She states it is painful to the point where she cannot sit down and is painful to even light on this area. Patient is alert oriented respirations regular and unlabored speaking in full sentences walks with even steady gait but is painful to walk. TRAVEL OUTSIDE OF THE [place] IN LAST 30 DAYS: No - Related Data Allergies/Adverse Reactions: No Known Allergies Allergy (Verified 06/18/18 11:22) Past Medical History - Social History Family history: Reviewed & Not Pertinent - Past Medical History Cardiac Medical History: Reports: Hx Hypertension Pulmonary Medical History: Reports: Hx Sleep Apnea Renal/ Medical History: Denies: Hx End Stage Renal Disease, Hx Peritoneal Dialysis Skin Medical History: Denies Hx Eczema Traumatic Medical History: Denies: Hx Traumatic Brain Injury Infectious Medical History: Reports: Hx HIV - Immunizations Hx Diphtheria, Pertussis, Tetanus Vaccination: Yes - unknown last History of Influenza Vaccine for 11/2016 - 04/2017 Season: Yes Physical Exam - Vital signs Vitals: Temp Pulse Resp BP Pulse Ox 98.5 F 98 20 148/96 H 98 10/17/18 18:35 10/17/18 18:35 10/17/18 18:35 10/17/18 18:35 10/17/18 18:35 Course - Vital Signs Vital signs: Temp Pulse Resp BP Pulse Ox 98.5 F 98 20 148/96 H 98 10/17/18 18:35 10/17/18 18:35 10/17/18 18:35 10/17/18 18:35 10/17/18 18:35 Doctor's Discharge - Discharge Referrals: BULL MANN [Primary Care Provider] - Follow up as needed
[2018-10-17 19:39] LABS: ABSOLUTE EOSINOPHILS # (AUTO) 0.1 10^3/uL (0.0-0.6); ABSOLUTE LYMPHOCYTES (AUTO) 1.6 10^3/uL (0.5-4.7); ABSOLUTE MONOCYTES (AUTO) 0.4 10^3/uL (0.1-1.4); ABSOLUTE NEUT (AUTO) 7.2 10^3/uL (1.7-8.2); BASOPHILS % (AUTO) 0.2 % (0-2); EOSINOPHILS % (AUTO) 1.2 % (0-6); HEMATOCRIT 31.4 % (36.0-47.0); HEMOGLOBIN 9.9 g/dL (12.0-15.5); MEAN CORPUSCULAR HEMOGLOBIN 22.6 pg (27.0-33.4); MEAN CORPUSCULAR HGB CONC 31.5 g/dL (32.0-36.0); MEAN CORPUSCULAR VOLUME 72 fl (80-97); MONOCYTES % (AUTO) 4.5 % (3-13); PLATELET COUNT 226 10^3/uL (150-450); RED BLOOD COUNT 4.38 10^6/uL (3.72-5.28); RED CELL DISTRIBUTION WIDTH 17.6 % (11.5-14.0); SEGMENTED NEUTROPHILS % (AUTO) 77.1 % (42-78); TOTAL CELLS COUNTED % (AUTO) 100 %; WHITE BLOOD COUNT 9.3 10^3/uL (4.0-10.5)
[2018-10-17 19:58] LABS: ALBUMIN 4.1 g/dL (3.5-5.0); ALKALINE PHOSPHATASE 135 U/L (38-126); ANION GAP 9 (5-19); ASPARTATE AMINO TRANSFERASE 22 U/L (14-36); BILIRUBIN,DIRECT 0.2 mg/dL (0.0-0.4); BILIRUBIN,TOTAL 0.5 mg/dL (0.2-1.3); BLOOD UREA NITROGEN 12 mg/dL (7-20); CALCIUM 9.5 mg/dL (8.4-10.2); CARBON DIOXIDE 31 mmol/L (22-30); CHLORIDE 99 mmol/L (98-107); GLUCOSE 140 mg/dL (75-110); TOTAL PROTEIN 7.9 g/dL (6.3-8.2)
--- NOTE | 2018-10-17 20:18 | ER Document Report ---
ED General <KING HECK E - Last Filed: 10/17/18 20:51> - General Mode of Arrival: Ambulatory TRAVEL OUTSIDE OF THE [place] IN LAST 30 DAYS: No <BK COLBERT - Last Filed: 10/18/18 01:10> - General Chief Complaint: Abscess Stated Complaint: POSSIBLE ABSCESS/LOW BACK Time Seen by Provider: 10/17/18 18:55 Notes: Patient is an otherwise healthy 28-year-old female presented to the emergency department chief complaint of possible abscess to her buttocks. Patient reports pain has been present for approximately 4 days. She denies any drainage or fevers. She denies any history of abscess, denies any history of MRSA. (BK COLBERT) - Related Data Allergies/Adverse Reactions: No Known Allergies Allergy (Verified 06/18/18 11:22) Past Medical History - General Information source: Patient - Social History Smoking Status: Never Smoker Chew tobacco use (# tins/day): No Family History: Arthritis, CAD, CVA, DM, Hyperlipidemia, Hypertension, Malignancy, Thyroid Disfunction Patient has suicidal ideation: No Patient has homicidal ideation: No - Past Medical History Cardiac Medical History: Reports: Hx Hypertension Pulmonary Medical History: Reports: Hx Sleep Apnea Renal/ Medical History: Denies: Hx End Stage Renal Disease, Hx Peritoneal Dialysis Skin Medical History: Denies Hx Eczema Traumatic Medical History: Denies: Hx Traumatic Brain Injury Infectious Medical History: Reports: Hx HIV Surgical Hx: Negative - Immunizations Hx Diphtheria, Pertussis, Tetanus Vaccination: Yes - unknown last <BK COLBERT - Last Filed: 10/18/18 01:10> Review of Systems - Review of Systems Constitutional: No symptoms reported EENT: No symptoms reported Cardiovascular: No symptoms reported Respiratory: No symptoms reported Gastrointestinal: No symptoms reported Genitourinary: No symptoms reported Female Genitourinary: No symptoms reported Musculoskeletal: No symptoms reported Skin: See HPI Hematologic/Lymphatic: No symptoms reported Neurological/Psychological: No symptoms reported <BK COLBERT - Last Filed: 10/18/18 01:10> Physical Exam <BK COLBERT - Last Filed: 10/18/18 01:10> - Vital signs Vitals: Temp Pulse Resp BP Pulse Ox 98.5 F 98 20 148/96 H 98 10/17/18 18:35 10/17/18 18:35 10/17/18 18:35 10/17/18 18:35 10/17/18 18:35 - Notes Notes: PHYSICAL EXAMINATION: GENERAL: Well-appearing, well-nourished and in no acute distress. HEAD: Atraumatic, normocephalic. EYES: Pupils equal round and reactive to light, extraocular movements intact, conjunctiva are normal. ENT: Nares patent, oropharynx clear without exudates. Moist mucous membranes. NECK: Normal range of motion, supple without lymphadenopathy LUNGS: Breath sounds clear to auscultation bilaterally and equal. No wheezes rales or rhonchi. HEART: Regular rate and rhythm without murmurs ABDOMEN: Soft, nontender, nondistended abdomen. No guarding, no rebound. No masses appreciated. Female : deferred Musculoskeletal: Normal range of motion, no pitting or edema. No cyanosis. NEUROLOGICAL: Cranial nerves grossly intact. Normal speech, normal gait. Normal sensory, motor exams PSYCH: Normal mood, normal affect. SKIN: Area of induration to bilateral superior buttocks. No area of fluctuance noted, very tender to palpation. (BK COLBERT) Course - Laboratory Result Diagrams: 10/17/18 19:27 10/17/18 19:27 <KING HECK - Last Filed: 10/17/18 20:51> - Laboratory Result Diagrams: 10/17/18 19:27 10/17/18 19:27 <BK COLBERT - Last Filed: 10/18/18 01:10> - Re-evaluation Re-evalutation: 10/17/18 20:52 Patient was seen and examined as requested by [facility]. Patient reports 2 days of buttock pain. She denies any drainage, fever, chills, nausea, vomiting. Exam is significant for tenderness to the gluteal cleft and left and right upper buttocks. Bedside ultrasound was performed by myself and no obvious fluid collection was appreciated. Advised CT of the pelvis with IV contrast. PHYSICAL EXAMINATION: GENERAL: Well-appearing, well-nourished and in no acute distress. HEAD: Atraumatic, normocephalic. EYES: Pupils equal round extraocular movements intact, conjunctiva are normal. ENT: Nares patent NECK: Normal range of motion LUNGS: No respiratory distress Musculoskeletal: Normal range of motion NEUROLOGICAL: Normal speech, normal gait. PSYCH: Normal mood, normal affect. SKIN: Warm, Dry, normal turgor, no rashes or lesions noted. Rectal; bilateral induration of the upper buttocks bilaterally. Tenderness with palpation. No fluctuance, erythema. (KING HECK) 10/17/18 23:06 Consulted surgery, Dr. Andrews regarding patient's CT findings of abscess with phlegmon. He will come and evaluate the patient at the bedside. 10/17/18 23:15 Dr. Andrews came to the bedside to evaluate the patient, he feels it would be most appropriate to admit patient to the medical floor and take to the operating room tomorrow for incision and drainage. Patient is agreeable to this. Patient will be allowed to have her dinner at this time and then will be made n.p.o. after midnight. (BK COLBERT) - Vital Signs Vital signs: Temp Pulse Resp BP Pulse Ox 98.5 F 98 20 148/96 H 98 10/17/18 18:35 10/17/18 18:35 10/17/18 18:35 10/17/18 18:35 10/17/18 18:35 - Laboratory Laboratory results interpreted by me: 10/17/18 10/17/18 10/17/18 19:27 19:27 20:13 Hgb 9.9 L Hct 31.4 L MCV 72 L MCH 22.6 L MCHC 31.5 L RDW 17.6 H Potassium 2.8 L* Carbon Dioxide 31 H Glucose 140 H Alkaline Phosphatase 135 H Urine Protein 30 H Urine Blood LARGE H Ur Leukocyte Esterase TRACE H Discharge <KING HECK - Last Filed: 10/17/18 20:51> - Discharge Admitting Provider: Surgicalist - [facility] Unit Admitted: Surgical Floor <BK COLBERT - Last Filed: 10/18/18 01:10> - Discharge Clinical Impression: Abscess of buttock Condition: Stable Disposition: ADMITTED OBSERVATION
[2018-10-17 20:27] LABS: POTASSIUM 2.8 mmol/L (3.6-5.0)
[2018-10-17 20:30] LABS: APPEARANCE,URINE SLIGHTLY-CLOUDY; BILIRUBIN,URINE NEGATIVE (NEGATIVE); COLOR,URINE YELLOW; GLUCOSE, URINE NEGATIVE (NEGATIVE); KETONES,URINE NEGATIVE (NEGATIVE); LEUKOCYTE ESTERASE,URINE TRACE (NEGATIVE); NITRITE,URINE NEGATIVE (NEGATIVE); PROTEIN,URINE 30 mg/dL (NEGATIVE); URINE SPECIFIC GRAVITY 1.009; UROBILINOGEN,URINE NEGATIVE mg/dL (<2.0)
[2018-10-17] MEDS ORDERED: MORPHINE SULFATE 10 MG/ML INJ IV ONE (21:21)
--- NOTE | 2018-10-17 22:21 | RADIOLOGY REPORT (SQ) ---
EXAM DESCRIPTION: CT PELVIS WITH IV CONTRAST COMPLETED DATE/TME: 10/17/2018 20:51 CLINICAL HISTORY: 28 years, Female, eval for abscess bilateral buttocks COMPARISON: None. TECHNIQUE: [id number] Images stored on PACS. All CT scanners at this facility use dose modulation, iterative reconstruction, and/or weight based dosing when appropriate to reduce radiation dose to as low as reasonably achievable (ALARA). [facility]: Dose Right [facility]: CareDose [facility]: Dose Right [facility]: Teradose 4D [facility]: [employer] LIMITATIONS: None. FINDINGS: Osseous structures are grossly intact. Limited evaluation of intrapelvic structures is unremarkable. Normal appendix. No free air or free fluid in the pelvis. Subcutaneous inflammatory changes associated with the midline gluteal region. A more localized area of phlegmon and low density likely reflect small abscess measuring 2.8 x 1.9 cm. IMPRESSION: Inflammatory change/phlegmon with small gluteal abscess as above TECHNICAL DOCUMENTATION: Quality ID # [id number]: Final reports with documentation of one or more dose reduction techniques (e.g., Automated exposure control, adjustment of the mA and/or kV according to patient size, use of iterative reconstruction technique) copyright 2010 [employer]- All Rights Reserved
[2018-10-17] MEDS ORDERED: LIDOCAINE 1% INJ-PF (10 MG/ML) 30 ML SDV SUBD ONE (22:52)
[2018-10-17] MEDS ORDERED: PIPERACILLIN/TAZOBACTAM 3.375 GM VIAL IV ONE (23:26)
[2018-10-17] MEDS ORDERED: VANCOMYCIN HCL INJ 1000 MG VIAL IV ONE (23:26)
[2018-10-17] MEDS ORDERED: DEXTROSE 50%-WATER 25 GM/50 ML DISP.SYRIN IV PRN ×2 (23:40)
[2018-10-17] MEDS ORDERED: ONDANSETRON HCL INJ/PF 4 MG/2 ML SDV IV PRN (23:40)
[2018-10-17] MEDS ORDERED: GLUCAGON,HUMAN RECOMB 1 MG INJ SUBCUT PRN (23:40)
[2018-10-17] MEDS ORDERED: DEXTROSE 40% GEL 15 GM TUBE PO PRN ×2 (23:40)
[2018-10-17] MEDS ORDERED: NORMAL SALINE 1000 ML 1,000 ML IV PRN (23:40)
--- NOTE | 2018-10-17 23:40 | PDOC H&P ---
History of Present Illness Admission Date/PCP: 10/17/18 23:24 Patient complains of: Bilateral sacral pain History of Present Illness: RUFUS RODRÍGUEZ is a 28 year old female with a history of painful sacrum for the past few days together with swelling. The patient came to the emergency room with above complaints a CAT scan of the pelvis was done revealing a phleg mon/abscess in the area of the sacrum as per pilonidal cyst abscess. She has a history of known to the hypertension. Past Medical History Cardiac Medical History: Reports: Hypertension Pulmonary Medical History: Reports: Sleep Apnea Renal/ Medical History: Denies: End Stage Renal Disease Skin Medical History: Denies: Eczema Traumatic Medical History: Denies: Traumatic Brain Injury Hematology: Reports: Anemia Denies: Sickle Cell Disease Infectious Medical History: Reports: HIV Social History Smoking Status: Never Smoker Drugs: None Hx Prescription Drug Abuse: No Family History Family History: Arthritis, CAD, CVA, DM, Hyperlipidemia, Hypertension, Malignancy, Thyroid Disfunction Parental Family History Reviewed: Yes - defibrillator Children Family History Reviewed: No Sibling(s) Family History Reviewed.: Yes - brother of heart valve surgery Medication/Allergy Home Medications: Spironolact/Hydrochlorothiazid [Spironolactone-Hctz 25-25 Tab] 1 each PO DAILY 06/18/18 Allergies/Adverse Reactions: No Known Allergies Allergy (Verified 06/18/18 11:22) Physical Exam Vital Signs: Temp Pulse Resp BP Pulse Ox 98.5 F 98 20 148/96 H 98 10/17/18 18:35 10/17/18 18:35 10/17/18 18:35 10/17/18 18:35 10/17/18 18:35 Intake & Output 10/16/18 10/17/18 10/18/18 06:59 06:59 06:59 Intake Total 1000 Balance 1000 Weight 110.5 kg General appearance: PRESENT: mild distress Head exam: PRESENT: atraumatic Eye exam: PRESENT: EOMI, PERRLA Mouth exam: PRESENT: moist, neck supple Teeth exam: PRESENT: poor dentation Neck exam: PRESENT: full ROM Respiratory exam: PRESENT: clear to auscultation agustín Cardiovascular exam: PRESENT: RRR GI/Abdominal exam: PRESENT: diminished bowel sounds, normal bowel sounds, soft Rectal exam: PRESENT: deferred, other - large area of bilateral edema, erythema, and fullness of the upper sacrum, along the midline Extremities exam: PRESENT: full ROM Musculoskeletal exam: PRESENT: full ROM Neurological exam: PRESENT: alert Psychiatric exam: PRESENT: appropriate affect Skin exam: PRESENT: warm Results Laboratory Results: 10/17/18 19:27 10/17/18 19:27 10/17/18 10/17/18 10/17/18 19:27 19:27 19:27 WBC 9.3 RBC 4.38 Hgb 9.9 L Hct 31.4 L MCV 72 L MCH 22.6 L MCHC 31.5 L RDW 17.6 H Plt Count 226 Seg Neutrophils % 77.1 Sodium 139.0 Potassium 2.8 L* Chloride 99 Carbon Dioxide 31 H Anion Gap 9 BUN 12 Creatinine 0.56 Est GFR ( Amer) > 60 Glucose 140 H Calcium 9.5 Total Bilirubin 0.5 AST 22 Alkaline Phosphatase 135 H Total Protein 7.9 Albumin 4.1 Serum HCG, Qual NEGATIVE Urine Color Urine Appearance Urine pH Ur Specific [place] Urine Protein Urine Glucose (UA) Urine Ketones Urine Blood Urine Nitrite Ur Leukocyte Esterase Urine WBC (Auto) Urine RBC (Auto) 10/17/18 20:13 WBC RBC Hgb Hct MCV MCH MCHC RDW Plt Count Seg Neutrophils % Sodium Potassium Chloride Carbon Dioxide Anion Gap BUN Creatinine Est GFR ( Amer) Glucose Calcium Total Bilirubin AST Alkaline Phosphatase Total Protein Albumin Serum HCG, Qual Urine Color YELLOW Urine Appearance SLIGHTLY-CLOUDY Urine pH 7.0 Ur Specific [place] 1.009 Urine Protein 30 H Urine Glucose (UA) NEGATIVE Urine Ketones NEGATIVE Urine Blood LARGE H Urine Nitrite NEGATIVE Ur Leukocyte Esterase TRACE H Urine WBC (Auto) 7 Urine RBC (Auto) >182 Impressions: Pelvis CT 10/17/18 20:51 IMPRESSION: Inflammatory change/phlegmon with small gluteal abscess as above TECHNICAL DOCUMENTATION: Quality ID # 436: Final reports with documentation of one or more dose reduction techniques (e.g., Automated exposure control, adjustment of the mA and/or kV according to patient size, use of iterative reconstruction technique) copyright 2011 [employer]- All Rights Reserved Assessment & Plan - Diagnosis (1) Cyst, pilonidal, with abscess Is this a current diagnosis for this admission?: Yes - Plan Summary Plan Summary: Assessment: 28-year-old female with painful high sacral area with erythema and edema as well as fullness of physical exam CT scan of the pelvis reveals an abscess deep in the high sacral area as per pilonidal cyst abscess Normal white count Plan: Admission N.p.o. IV fluids Start the patient on vancomycin and Zosyn for possible MRSA versus mixed tobin infection Plan to take the patient to surgery tomorrow for incision and drainage of the pilonidal cyst abscess. Procedure is benefits complications went to the patient she understands all the above decides to proceed
[2018-10-17] MEDS ORDERED: VANCOMYCIN HCL 0 MG in DEXTROSE 5%-WATER 250 ML IV NR (23:45)
[2018-10-17] MEDS ORDERED: HYDRALAZINE HCL INJ/PF 20 MG/1 ML SDV IV PRN (23:49)
[2018-10-18] MEDS: MORPHINE SULFATE 10 MG/ML INJ IV PRN ×4 (00:23→21:56)
[2018-10-18] MEDS ORDERED: PIPERACILLIN/TAZOBACTAM 3.375 GM VIAL IV PRN (01:00)
[2018-10-18] MEDS: POTASSI CL 20 MEQ/50 ML RIDER 20 MEQ/50 ML RTUPB IV SCH ×2 (01:01→03:20)
[2018-10-18] MEDS ORDERED: PIPERACILLIN/TAZOBACTAM 3.375 GM VIAL IV ONE (05:15)
[2018-10-18] MEDS: PIPERACILLIN SODIUM/TAZOBACTAM 3.375 GM in NORMAL SALINE 100 ML IV SCH ×4 (05:40→23:30)
[2018-10-18 06:18] LABS: ABSOLUTE EOSINOPHILS # (AUTO) 0.1 10^3/uL (0.0-0.6); ABSOLUTE LYMPHOCYTES (AUTO) 1.6 10^3/uL (0.5-4.7); ABSOLUTE MONOCYTES (AUTO) 0.9 10^3/uL (0.1-1.4); ABSOLUTE NEUT (AUTO) 7.9 10^3/uL (1.7-8.2); BASOPHILS % (AUTO) 0.4 % (0-2); EOSINOPHILS % (AUTO) 1.3 % (0-6); HEMATOCRIT 29.8 % (36.0-47.0); HEMOGLOBIN 9.4 g/dL (12.0-15.5); MEAN CORPUSCULAR HEMOGLOBIN 22.5 pg (27.0-33.4); MEAN CORPUSCULAR HGB CONC 31.5 g/dL (32.0-36.0); MEAN CORPUSCULAR VOLUME 71 fl (80-97); MONOCYTES % (AUTO) 8.4 % (3-13); PLATELET COUNT 217 10^3/uL (150-450); RED BLOOD COUNT 4.17 10^6/uL (3.72-5.28); RED CELL DISTRIBUTION WIDTH 17.5 % (11.5-14.0); SEGMENTED NEUTROPHILS % (AUTO) 74.9 % (42-78); TOTAL CELLS COUNTED % (AUTO) 100 %; WHITE BLOOD COUNT 10.5 10^3/uL (4.0-10.5)
[2018-10-18 06:34] LABS: ANION GAP 10 (5-19); BLOOD UREA NITROGEN 9 mg/dL (7-20); CALCIUM 8.6 mg/dL (8.4-10.2); CARBON DIOXIDE 29 mmol/L (22-30); CHLORIDE 102 mmol/L (98-107); GLUCOSE 96 mg/dL (75-110); POTASSIUM 3.2 mmol/L (3.6-5.0)
[2018-10-18] MEDS: KETOROLAC TROMETHAMINE INJ/PF 30 MG/1 ML SDV IV PRN ×3 (06:34→23:31)
[2018-10-18] MEDS: ACETAMINOPHEN 1,000 MG/100 ML RTUPB IV SCH ×4 (08:45→23:30)
--- NOTE | 2018-10-18 09:31 | EKG REPORT ---
SEVERITY:- ABNORMAL ECG - SINUS RHYTHM PROBABLE LEFT VENTRICULAR HYPERTROPHY PROLONGED QT INTERVAL : Confirmed by: Livier Cole MD 18-Oct-2018 09:29:46
[2018-10-18] MEDS: VANCOMYCIN HCL 1,250 MG in DEXTROSE 5%-WATER 250 ML IV SCH ×2 (10:44→19:09)
[2018-10-18] MEDS: FAMOTIDINE INJ/PF 20 MG/2 ML SDV IV SCH ×2 (10:44→21:57)
[2018-10-18] MEDS ORDERED: MIDAZOLAM 2 MG/2 ML INJ ONE (13:47)
[2018-10-18] MEDS ORDERED: PROPOFOL INJ 200 MG/20 ML VIAL IV ONE (13:47)
[2018-10-18] MEDS ORDERED: FENTANYL CITRATE INJ/PF 100 MCG/2 ML AMPUL ONE (13:47)
[2018-10-18] MEDS ORDERED: LIDOCAINE 1%/EPINEPHRINE INJ 20 ML VIAL ONE (13:48)
[2018-10-18] MEDS ORDERED: BUPIVACAINE HCL 0.5%-EPI 1:200000 INJ/PF 30 ML VIAL ONE (13:48)
--- NOTE | 2018-10-18 15:16 | Operative Report ---
Operative Report DATE OF SURGERY: 10/18/18 PREOPERATIVE DIAGNOSIS: Pilonidal cyst abscess POSTOPERATIVE DIAGNOSIS: Same OPERATION: Incision and drainage of pilonidal cyst abscess SURGEON: SINCERE ROSARIO ANESTHESIA: Local - 40 mL 50/50 1% lidocaine mixed with 0.5% Marcaine TISSUE REMOVED OR ALTERED: None COMPLICATIONS: None ESTIMATED BLOOD LOSS: Less than 5 mL INTRAOPERATIVE FINDINGS: Large subcutaneous cavity along the midline of the upper sacrum field with dg color fluid PROCEDURE: The procedure was done in the operating room. The patient was placed in lateral decubitus on the hospital stretcher, the sacral area was exposed, and the patient was given IV sedation by anesthesiologist. The sacrum was prepped and draped in usual fashion; the area of subcutaneous induration located in the sacrum was marked with a surgical marker on either side and infiltrated with the 50-50 lidocaine and Marcaine solution. A 1 inch skin incision was made in the right buttock, a hemostat was inserted and a large amount of dg colored fluid was obtained; this was sent for aerobic and anairobic culture and Gram stain. A finger was inserted in the subcutaneous tissue of the right incision and a large cavity was appreciated. A counterincision was made on the left buttock, about half inch long, a the finger was inserted and the same cavity was identified from the left side. A long right angle dissector was inserted through the right incision and a half-inch Beatriz drain was threaded through the counterincision, grasped with the right angle and extracted. The two ends were joined in a loop and tied together with a silk suture. The cavity was irrigated with 1 L of warm normal saline using jet-lavage. Both incisions was then packed with quarter inch packing strip, sterile dressing were applied, followed by ABDs and tape the patient. The patient tolerated tolerated the procedure well and transferred to recovery room in satisfactory conditions
[2018-10-18] MEDS: DOCUSATE SODIUM 100 MG CAPSULE PO SCH (17:39)
[2018-10-19] MEDS: VANCOMYCIN HCL 1,250 MG in DEXTROSE 5%-WATER 250 ML IV SCH ×4 (01:14→17:30)
[2018-10-19 04:38] LABS: ABSOLUTE EOSINOPHILS # (AUTO) 0.3 10^3/uL (0.0-0.6); ABSOLUTE LYMPHOCYTES (AUTO) 1.3 10^3/uL (0.5-4.7); ABSOLUTE MONOCYTES (AUTO) 0.7 10^3/uL (0.1-1.4); ABSOLUTE NEUT (AUTO) 6.8 10^3/uL (1.7-8.2); BASOPHILS % (AUTO) 0.5 % (0-2); EOSINOPHILS % (AUTO) 3.6 % (0-6); HEMATOCRIT 28.4 % (36.0-47.0); LYMPHOCYTES % (AUTO) 13.9 % (13-45); MEAN CORPUSCULAR HEMOGLOBIN 22.8 pg (27.0-33.4); MEAN CORPUSCULAR HGB CONC 31.8 g/dL (32.0-36.0); MEAN CORPUSCULAR VOLUME 72 fl (80-97); MONOCYTES % (AUTO) 7.7 % (3-13); PLATELET COUNT 212 10^3/uL (150-450); RED BLOOD COUNT 3.96 10^6/uL (3.72-5.28); RED CELL DISTRIBUTION WIDTH 17.2 % (11.5-14.0); SEGMENTED NEUTROPHILS % (AUTO) 74.3 % (42-78); TOTAL CELLS COUNTED % (AUTO) 100 %; WHITE BLOOD COUNT 9.1 10^3/uL (4.0-10.5)
[2018-10-19] MEDS: MORPHINE SULFATE 10 MG/ML INJ IV PRN ×3 (04:42→14:44)
[2018-10-19 04:44] LABS: ANION GAP 8 (5-19); BLOOD UREA NITROGEN 8 mg/dL (7-20); CALCIUM 8.8 mg/dL (8.4-10.2); CARBON DIOXIDE 31 mmol/L (22-30); CHLORIDE 99 mmol/L (98-107); GLUCOSE 138 mg/dL (75-110); POTASSIUM 3.2 mmol/L (3.6-5.0)
[2018-10-19] MEDS: PIPERACILLIN SODIUM/TAZOBACTAM 3.375 GM in NORMAL SALINE 100 ML IV SCH ×3 (07:31→17:30)
[2018-10-19] MEDS: ACETAMINOPHEN 1,000 MG/100 ML RTUPB IV SCH ×4 (09:18→23:35)
[2018-10-19] MEDS: FAMOTIDINE INJ/PF 20 MG/2 ML SDV IV SCH ×2 (09:20→21:47)
[2018-10-19] MEDS: ENOXAPARIN SODIUM INJ 30 MG/0.3 ML DISP.SYRIN SUBCUT SCH (09:21)
[2018-10-19] MEDS: DOCUSATE SODIUM 100 MG CAPSULE PO SCH ×2 (09:21→17:45)
[2018-10-19] MEDS: KETOROLAC TROMETHAMINE INJ/PF 30 MG/1 ML SDV IV PRN (16:27)
--- NOTE | 2018-10-19 18:19 | PDOC PROGRESS REPORT ---
Subjective Progress Note for:: 10/19/18 Subjective:: Patient has no complaints; has asthma under oxygen currently. no History of diabetes mellitus. Reason For Visit: PILONIDAL CYST ABSCESS Physical Exam Vital Signs: Temp Pulse Resp BP Pulse Ox 98.0 F 90 20 144/85 H 98 10/19/18 10:52 10/19/18 10:52 10/19/18 10:52 10/19/18 10:52 10/19/18 10:52 Pulse Oximeter Continuous Start: 10/18/18 15:39 Freq: RTQ4 Status: Active Protocol: Document 10/19/18 15:34 JDR (Rec: 10/19/18 15:34 JDR [id number]) Pulse Oximetry Assessment Oxygen Delivery Method Room Air Equipment Usage Equipment Standby Continuous SpO2 Machine # 10 Intake & Output 10/18/18 10/19/18 10/20/18 06:59 06:59 06:59 Intake Total 1123 4400 1550 Output Total 1005 Balance 1123 3395 1550 Weight 111 kg 110.9 kg General appearance: PRESENT: no acute distress GI/Abdominal exam: PRESENT: other - She rolled her right lateral decubitus position. Large Beatriz drain intact being the left and right paramedian sacral excision sites. All packing removed. No foul smell. Some indurated skin inferiorly. Results Laboratory Results: 10/19/18 03:36 10/19/18 09:45 10/19/18 10/19/18 10/19/18 03:36 03:36 09:45 WBC 9.1 RBC 3.96 Hgb 9.0 L Hct 28.4 L MCV 72 L MCH 22.8 L MCHC 31.8 L RDW 17.2 H Plt Count 212 Seg Neutrophils % 74.3 Sodium 137.9 Potassium 3.2 L Chloride 99 Carbon Dioxide 31 H Anion Gap 8 BUN 8 Creatinine 0.49 L 0.42 L Est GFR ( Amer) > 60 > 60 Glucose 138 H Calcium 8.8 10/17/18 20:13 Clean Catch Midstream Urine Culture - Final Mixed Urogenital Indu Impressions: Pelvis CT 10/17/18 20:51 IMPRESSION: Inflammatory change/phlegmon with small gluteal abscess as above TECHNICAL DOCUMENTATION: Quality ID # 436: Final reports with documentation of one or more dose reduction techniques (e.g., Automated exposure control, adjustment of the mA and/or kV according to patient size, use of iterative reconstruction technique) copyright 2011 [employer]- All Rights Reserved Assessment & Plan - Diagnosis (1) Abscess of buttock Is this a current diagnosis for this admission?: Yes Plan: Impression: 1 day status post vigorous debridement of midline sacral abscess with a [place] drain; packing removed, and repacked at bedside for mild bleeding today; growing gram-positive cocci Recommendations: 1. Leave wound packed today. Leave Beatriz drain in place. No indication for further debridement today. 2. Recommended patient get up and into the shower. 3. Recheck patient tomorrow, follow-up wound cultures and sensitivities.
[2018-10-20] MEDS: PIPERACILLIN SODIUM/TAZOBACTAM 3.375 GM in NORMAL SALINE 100 ML IV SCH ×4 (00:17→18:06)
[2018-10-20] MEDS: VANCOMYCIN HCL 1,250 MG in DEXTROSE 5%-WATER 250 ML IV SCH ×2 (01:04→06:17)
[2018-10-20] MEDS: KETOROLAC TROMETHAMINE INJ/PF 30 MG/1 ML SDV IV PRN (02:53)
[2018-10-20] MEDS: ACETAMINOPHEN 1,000 MG/100 ML RTUPB IV SCH ×3 (05:12→18:05)
[2018-10-20 06:20] LABS: ABSOLUTE EOSINOPHILS # (AUTO) 0.4 10^3/uL (0.0-0.6); ABSOLUTE LYMPHOCYTES (AUTO) 1.5 10^3/uL (0.5-4.7); ABSOLUTE MONOCYTES (AUTO) 0.6 10^3/uL (0.1-1.4); ABSOLUTE NEUT (AUTO) 4.5 10^3/uL (1.7-8.2); BASOPHILS % (AUTO) 0.6 % (0-2); EOSINOPHILS % (AUTO) 5.5 % (0-6); HEMATOCRIT 29.6 % (36.0-47.0); HEMOGLOBIN 9.2 g/dL (12.0-15.5); LYMPHOCYTES % (AUTO) 21.6 % (13-45); MEAN CORPUSCULAR HEMOGLOBIN 22.5 pg (27.0-33.4); MEAN CORPUSCULAR HGB CONC 31.2 g/dL (32.0-36.0); MEAN CORPUSCULAR VOLUME 72 fl (80-97); MONOCYTES % (AUTO) 8.6 % (3-13); PLATELET COUNT 239 10^3/uL (150-450); RED BLOOD COUNT 4.11 10^6/uL (3.72-5.28); RED CELL DISTRIBUTION WIDTH 17.3 % (11.5-14.0); SEGMENTED NEUTROPHILS % (AUTO) 63.7 % (42-78); TOTAL CELLS COUNTED % (AUTO) 100 %
[2018-10-20 06:45] LABS: ANION GAP 8 (5-19); BLOOD UREA NITROGEN 4 mg/dL (7-20); CALCIUM 9.2 mg/dL (8.4-10.2); CARBON DIOXIDE 32 mmol/L (22-30); CHLORIDE 98 mmol/L (98-107); GLUCOSE 84 mg/dL (75-110); POTASSIUM 3.3 mmol/L (3.6-5.0)
[2018-10-20 06:51] LABS: VANCOMYCIN,TROUGH 19.9 ug/mL (5.0-20.0)
[2018-10-20] MEDS: MORPHINE SULFATE 10 MG/ML INJ IV PRN ×2 (08:24→12:31)
[2018-10-20] MEDS: FAMOTIDINE INJ/PF 20 MG/2 ML SDV IV SCH ×2 (10:15→21:21)
[2018-10-20] MEDS: ENOXAPARIN SODIUM INJ 30 MG/0.3 ML DISP.SYRIN SUBCUT SCH (10:37)
[2018-10-20] MEDS: DOCUSATE SODIUM 100 MG CAPSULE PO SCH ×2 (10:37→17:28)
--- NOTE | 2018-10-20 13:11 | PDOC PROGRESS REPORT ---
Subjective Progress Note for:: 10/20/18 Reason For Visit: PILONIDAL CYST ABSCESS Physical Exam Vital Signs: Temp Pulse Resp BP Pulse Ox 98.4 F 90 20 137/91 H 100 10/20/18 11:26 10/20/18 11:26 10/20/18 11:26 10/20/18 11:26 10/20/18 11:26 Pulse Oximeter Continuous Start: 10/18/18 15:39 Freq: RTQ4 Status: Active Protocol: Document 10/20/18 11:59 LDA (Rec: 10/20/18 11:59 LDA [id number]) Pulse Oximetry Assessment Equipment Usage Equipment Standby Continuous SpO2 Machine # [id number] Intake & Output 10/19/18 10/20/18 10/21/18 06:59 06:59 06:59 Intake Total 4400 3476 600 Output Total 1005 Balance 3395 3476 600 Weight 110.9 kg 110.9 kg General appearance: PRESENT: no acute distress Head exam: PRESENT: normocephalic Eye exam: PRESENT: EOMI Mouth exam: PRESENT: moist Neck exam: PRESENT: full ROM Respiratory exam: PRESENT: clear to auscultation agustín Cardiovascular exam: PRESENT: RRR Pulses: PRESENT: normal radial pulses, normal femoral pulses Vascular exam: PRESENT: normal capillary refill GI/Abdominal exam: PRESENT: soft Rectal exam: PRESENT: other - Status post bilateral visions for infected pilonidal cyst was drain is in place there is some induration on the right buttock cleft packing is been removed Extremities exam: PRESENT: full ROM Musculoskeletal exam: PRESENT: full ROM Neurological exam: PRESENT: alert, awake, oriented to person, oriented to place Psychiatric exam: PRESENT: appropriate affect Skin exam: PRESENT: dry Results Laboratory Results: 10/20/18 05:39 10/20/18 05:39 10/20/18 10/20/18 05:39 05:39 WBC 7.0 RBC 4.11 Hgb 9.2 L Hct 29.6 L MCV 72 L MCH 22.5 L MCHC 31.2 L RDW 17.3 H Plt Count 239 Seg Neutrophils % 63.7 Sodium 138.1 Potassium 3.3 L Chloride 98 Carbon Dioxide 32 H Anion Gap 8 BUN 4 L Creatinine 0.46 L Est GFR ( Amer) > 60 Glucose 84 Calcium 9.2 10/18/18 00:25 Blood Blood Culture - Final Staphylococcus Epidermidis 10/17/18 20:13 Clean Catch Midstream Urine Culture - Final Mixed Urogenital Indu Impressions: Pelvis CT 10/17/18 20:51 IMPRESSION: Inflammatory change/phlegmon with small gluteal abscess as above TECHNICAL DOCUMENTATION: Quality ID # 436: Final reports with documentation of one or more dose reduction techniques (e.g., Automated exposure control, adjustment of the mA and/or kV according to patient size, use of iterative reconstruction technique) copyright 2011 [employer]- All Rights Reserved Assessment & Plan - Plan Summary Plan Summary: Post incision and drainage of infected pilonidal cyst wound is now drained no further packing is necessary patient can be discharged home tomorrow on 3 times daily sits baths with a follow-up in surgical clinic we will leave the [place] drain in place
[2018-10-20] MEDS: VANCOMYCIN HCL 1,500 MG in DEXTROSE 5%-WATER 250 ML IV SCH ×2 (14:02→21:21)
[2018-10-21 05:07] LABS: ABSOLUTE EOSINOPHILS # (AUTO) 0.3 10^3/uL (0.0-0.6); ABSOLUTE LYMPHOCYTES (AUTO) 1.2 10^3/uL (0.5-4.7); ABSOLUTE MONOCYTES (AUTO) 0.8 10^3/uL (0.1-1.4); ABSOLUTE NEUT (AUTO) 7.4 10^3/uL (1.7-8.2); BASOPHILS % (AUTO) 0.5 % (0-2); EOSINOPHILS % (AUTO) 3.2 % (0-6); HEMATOCRIT 30.4 % (36.0-47.0); HEMOGLOBIN 9.6 g/dL (12.0-15.5); LYMPHOCYTES % (AUTO) 12.3 % (13-45); MEAN CORPUSCULAR HEMOGLOBIN 22.8 pg (27.0-33.4); MEAN CORPUSCULAR HGB CONC 31.7 g/dL (32.0-36.0); MEAN CORPUSCULAR VOLUME 72 fl (80-97); MONOCYTES % (AUTO) 8.5 % (3-13); PLATELET COUNT 258 10^3/uL (150-450); RED BLOOD COUNT 4.22 10^6/uL (3.72-5.28); RED CELL DISTRIBUTION WIDTH 17.7 % (11.5-14.0); SEGMENTED NEUTROPHILS % (AUTO) 75.5 % (42-78); TOTAL CELLS COUNTED % (AUTO) 100 %; WHITE BLOOD COUNT 9.8 10^3/uL (4.0-10.5)
[2018-10-21 05:21] LABS: ANION GAP 8 (5-19); BLOOD UREA NITROGEN 11 mg/dL (7-20); CALCIUM 9.1 mg/dL (8.4-10.2); CARBON DIOXIDE 31 mmol/L (22-30); CHLORIDE 101 mmol/L (98-107); GLUCOSE 107 mg/dL (75-110); POTASSIUM 3.3 mmol/L (3.6-5.0)
[2018-10-21] MEDS: DOCUSATE SODIUM 100 MG CAPSULE PO SCH ×2 (10:31→18:20)
[2018-10-21] MEDS: ENOXAPARIN SODIUM INJ 30 MG/0.3 ML DISP.SYRIN SUBCUT SCH (10:31)
[2018-10-21] MEDS: TRAMADOL HCL 50 MG TABLET PO PRN (10:32)
[2018-10-21] MEDS: SULFAMETHOXAZOLE/TRIMETHOPRIM 800-160 MG TABLET PO SCH ×2 (10:33→18:23)
[2018-10-21 14:23] LABS: VANCOMYCIN,TROUGH 10.3 ug/mL (5.0-20.0)
--- NOTE | 2018-10-21 14:57 | PDOC PROGRESS REPORT ---
Subjective Progress Note for:: 10/21/18 Reason For Visit: PILONIDAL CYST ABSCESS Physical Exam Vital Signs: Temp Pulse Resp BP Pulse Ox 98.5 F 91 20 148/83 H 98 10/21/18 11:27 10/21/18 11:27 10/21/18 11:27 10/21/18 11:27 10/21/18 11:27 Pulse Oximeter Continuous Start: 10/18/18 15:39 Freq: RTQ4 Status: Complete Protocol: Document 10/21/18 08:00 NSM (Rec: 10/21/18 11:43 NSM [id number]) Pulse Oximetry Assessment Equipment Usage Equipment Discontinued Continuous SpO2 Machine # [id number] Intake & Output 10/20/18 10/21/18 10/22/18 06:59 06:59 06:59 Intake Total 3476 4318 0 Balance 3476 4318 0 Weight 110.9 kg 109.8 kg Results Laboratory Results: 10/21/18 03:52 10/21/18 03:52 10/21/18 10/21/18 03:52 03:52 WBC 9.8 RBC 4.22 Hgb 9.6 L Hct 30.4 L MCV 72 L MCH 22.8 L MCHC 31.7 L RDW 17.7 H Plt Count 258 Seg Neutrophils % 75.5 Sodium 140.1 Potassium 3.3 L Chloride 101 Carbon Dioxide 31 H Anion Gap 8 BUN 11 Creatinine 1.20 Est GFR ( Amer) > 60 Glucose 107 Calcium 9.1 Impressions: Pelvis CT 10/17/18 20:51 IMPRESSION: Inflammatory change/phlegmon with small gluteal abscess as above TECHNICAL DOCUMENTATION: Quality ID # 436: Final reports with documentation of one or more dose reduction techniques (e.g., Automated exposure control, adjustment of the mA and/or kV according to patient size, use of iterative reconstruction technique) copyright 2011 [employer]- All Rights Reserved Assessment & Plan - Diagnosis (1) Cyst, pilonidal, with abscess Is this a current diagnosis for this admission?: Yes - Plan Summary Plan Summary: Is a 28-year-old female status post incision and drainage of a large pilonidal abscess. She is a Beatriz drain in place. Her wound is improving. There is a mild amount of induration. There is no significant purulent drainage. The patient reports that she cannot be discharged today due to no help at home, and there is no one to pick her up to take her home. Continue antibiotics. Discharge when patient can arrange a ride home.
[2018-10-22] MEDS: TRAMADOL HCL 50 MG TABLET PO PRN (00:04)
[2018-10-22 06:11] LABS: ABSOLUTE BASOPHILS # (AUTO) 0.1 10^3/uL (0.0-0.2); ABSOLUTE EOSINOPHILS # (AUTO) 0.2 10^3/uL (0.0-0.6); ABSOLUTE LYMPHOCYTES (AUTO) 1.7 10^3/uL (0.5-4.7); ABSOLUTE NEUT (AUTO) 8.9 10^3/uL (1.7-8.2); BASOPHILS % (AUTO) 0.6 % (0-2); EOSINOPHILS % (AUTO) 1.5 % (0-6); HEMATOCRIT 28.6 % (36.0-47.0); LYMPHOCYTES % (AUTO) 14.5 % (13-45); MEAN CORPUSCULAR HEMOGLOBIN 22.6 pg (27.0-33.4); MEAN CORPUSCULAR HGB CONC 31.6 g/dL (32.0-36.0); MEAN CORPUSCULAR VOLUME 71 fl (80-97); MONOCYTES % (AUTO) 8.7 % (3-13); PLATELET COUNT 267 10^3/uL (150-450); RED BLOOD COUNT 4.01 10^6/uL (3.72-5.28); SEGMENTED NEUTROPHILS % (AUTO) 74.7 % (42-78); TOTAL CELLS COUNTED % (AUTO) 100 %; WHITE BLOOD COUNT 11.9 10^3/uL (4.0-10.5)
[2018-10-22 06:27] LABS: ANION GAP 11 (5-19); BLOOD UREA NITROGEN 17 mg/dL (7-20); CALCIUM 8.8 mg/dL (8.4-10.2); CARBON DIOXIDE 30 mmol/L (22-30); CHLORIDE 99 mmol/L (98-107); GLUCOSE 99 mg/dL (75-110); POTASSIUM 3.2 mmol/L (3.6-5.0)
--- NOTE | 2018-10-22 07:30 | PDOC DISCHARGE SUMMARY ---
General - Admit/Disc Date/PCP Admission Date/Primary Care Provider: 10/17/18 23:24 Discharge Date: 10/22/18 - Discharge Diagnosis (1) Cyst, pilonidal, with abscess Is this a current diagnosis for this admission?: Yes - Additional Information Resuscitation Status: Full Code Discharge Diet: As Tolerated Discharge Activity: Activity As Tolerated Home Medications: No Home Medications 10/18/18 History of Present Illness History of Present Illness: RUFUS RODRÍGUEZ is a 28 year old female admitted with a pilonidal abscess. She was taken to the operating room for incision and drainage of her pilonidal abscess. Afterwards, she was taken to the floor in stable condition. Hospital Course Hospital Course: She remained on the floor for several days, receiving intravenous antibiotics. She was transitioned to p.o. antibiotics. Her pain was controlled with p.o. analgesics. By 10/22/2018 it was felt that she had reached maximal hospital benefit and was fit for discharge. Physical Exam Vital Signs: Temp Pulse Resp BP Pulse Ox 100.1 F 101 H 19 135/63 H 100 10/22/18 00:00 10/22/18 00:00 10/22/18 00:00 10/22/18 04:00 10/22/18 00:00 Pulse Oximeter Continuous Start: 10/18/18 15:39 Freq: RTQ4 Status: Complete Protocol: Document 10/21/18 08:00 NSM (Rec: 10/21/18 11:43 NSM [id number]) Pulse Oximetry Assessment Equipment Usage Equipment Discontinued Continuous SpO2 Machine # [id number] Intake & Output 10/21/18 10/22/18 10/23/18 06:59 06:59 06:59 Intake Total 4318 3490 Balance 4318 3490 Weight 109.8 kg 111.1 kg Results Laboratory Results: 10/22/18 05:30 10/22/18 05:30 10/22/18 10/22/18 05:30 05:30 WBC 11.9 H RBC 4.01 Hgb 9.0 L Hct 28.6 L MCV 71 L MCH 22.6 L MCHC 31.6 L RDW 18.0 H Plt Count 267 Seg Neutrophils % 74.7 Sodium 140.0 Potassium 3.2 L Chloride 99 Carbon Dioxide 30 Anion Gap 11 BUN 17 Creatinine 1.68 H Est GFR ( Amer) 44 L Glucose 99 Calcium 8.8 Impressions: Pelvis CT 10/17/18 20:51 IMPRESSION: Inflammatory change/phlegmon with small gluteal abscess as above TECHNICAL DOCUMENTATION: Quality ID # 436: Final reports with documentation of one or more dose reduction techniques (e.g., Automated exposure control, adjustment of the mA and/or kV according to patient size, use of iterative reconstruction technique) copyright 2011 [employer]- All Rights Reserved Qualifiers - * PATIENT BEING DISCHARGED WITH ANY OF THE FOLLOWING DIAGNOSIS: No Acute Heart Failure - Is this a Heart Failure Patient?: No Plan Discharge Plan: discharge home. Diet as tolerated. Activity as tolerated. Okay to shower. Bactrim DS, 1 tab p.o. twice daily x5 days. Ultram 50 mg p.o. every 6 hours as needed for pain. Follow-up with [facility] in 7 to 10 days. Time Spent: Less than 30 Minutes
[2018-10-22 08:55] VITALS: BP 155/86
[2018-10-22] MEDS: ENOXAPARIN SODIUM INJ 30 MG/0.3 ML DISP.SYRIN SUBCUT SCH (09:34)
[2018-10-22] MEDS: DOCUSATE SODIUM 100 MG CAPSULE PO SCH (09:34)
[2018-10-22] MEDS: SULFAMETHOXAZOLE/TRIMETHOPRIM 800-160 MG TABLET PO SCH (09:39)
== END 2018-10-22 10:13 | disposition home or self-care (01) ==
LOC: ER 18:29 → EH 23:24 → 5 10-18 03:12
PROVIDERS: ATTEND Surgery
PROC: 0H98XZZ Drainage of Buttock Skin, External Approach (ICD-10-PCS; principal; 2018-10-18 10:30)
DX: L05.01 Pilonidal cyst with abscess (principal); I10 Essential (primary) hypertension; J45.909 Unspecified asthma, uncomplicated; Z79.899 Other long term (current) drug therapy
CPT/HCPCS: 93005; 99285; 96361; 96375; 96365; 96367; 36415 ×6; 87040; 87086; 87070; 87205; 82565; 84703; 85025 ×6; 87075; 87077; 80048 ×5; 80053; 81001; 87186; 80202 ×3; 72193; 93010; 94660 ×3; 94762 ×3; 00300; 10080; G0378 ×6; J2250; J3490 ×2; J1885 ×3; J2270 ×4; J2405; J1650; J3480; J7060 ×3; J7050 ×3; J7030 ×2; J2704; J3370 ×3; S0028 ×3; J2543 ×3; J0131 ×3; 300; J3010

== ENCOUNTER 2019-01-06 19:15 | Emergency (ER) | payer SELFPAY ==
[2019-01-06] MEDS ORDERED: DIPHENHYDRAMINE HCL 25 MG CAPSULE PO ONE (19:28)
[2019-01-06] MEDS ORDERED: KETOROLAC TROMETHAMINE 60 MG/2 ML SDV IM ONE (19:28)
[2019-01-06] MEDS ORDERED: METOCLOPRAMIDE HCL 10 MG TABLET PO ONE (19:28)
--- NOTE | 2019-01-06 19:31 | ER Document Report ---
ED Medical Screen (RME) - General Chief Complaint: Headache Stated Complaint: HEADACHE Time Seen by Provider: 01/06/19 19:24 Mode of Arrival: Ambulatory Information source: Patient Notes: Patient presents emergency department with multiple complaints. Reports her main complaint is her headache she is has had a headache for 3 days. Has taken BC powders without relief of symptoms. Reports she has a history of these type of headaches. Denies trauma. Denies fever vomiting diarrhea. Denies . I have greeted and performed a rapid initial assessment of this patient. A comprehensive ED assessment and evaluation of the patient, analysis of test results and completion of the medical decision making process will be conducted by additional ED providers. Dictation of this chart was performed using voice recognition software; therefore, there may be some unintended grammatical errors. TRAVEL OUTSIDE OF THE [place] IN LAST 30 DAYS: No - Related Data Allergies/Adverse Reactions: No Known Allergies Allergy (Verified 01/06/19 19:23) Past Medical History - Social History Chew tobacco use (# tins/day): No Frequency of alcohol use: None Drug Abuse: None Family history: Reviewed & Not Pertinent - Past Medical History Cardiac Medical History: Reports: Hx Hypertension Pulmonary Medical History: Reports: Hx Sleep Apnea Renal/ Medical History: Denies: Hx End Stage Renal Disease, Hx Peritoneal Dialysis Skin Medical History: Denies Hx Eczema Traumatic Medical History: Denies: Hx Traumatic Brain Injury Infectious Medical History: Reports: Hx HIV - Immunizations Hx Diphtheria, Pertussis, Tetanus Vaccination: Yes - unknown last Physical Exam - Vital signs Vitals: Temp Pulse Resp BP Pulse Ox 98.2 F 108 H 20 146/94 H 100 01/06/19 19:21 01/06/19 19:21 01/06/19 19:21 01/06/19 19:21 01/06/19 19:21 Course - Vital Signs Vital signs: Temp Pulse Resp BP Pulse Ox 98.2 F 108 H 20 146/94 H 100 01/06/19 19:21 01/06/19 19:21 01/06/19 19:21 01/06/19 19:21 01/06/19 19:21
[2019-01-06] MEDS ORDERED: PROCHLORPERAZINE EDISYLATE INJ 10 MG/2 ML VIAL IV ONE (21:11)
[2019-01-06] MEDS ORDERED: NORMAL SALINE 500 ML IV ONE (21:11)
[2019-01-06] MEDS ORDERED: DIPHENHYDRAMINE HCL 50 MG/ML VIAL IV ONE (21:11)
--- NOTE | 2019-01-06 21:15 | ER Document Report ---
ED General - General Chief Complaint: Headache Stated Complaint: HEADACHE Time Seen by Provider: 01/06/19 19:24 Mode of Arrival: Ambulatory TRAVEL OUTSIDE OF THE [place] IN LAST 30 DAYS: No - HPI Notes: Patient is a 28-year-old female with a history of migraines and hypertension who presents complaining of left-sided headache with occasional light sensitivity and intermittent dizziness that is been present for 3 days constantly. Patient states that these headaches are not new for her and this is not the worst headache of her life. It did not start as a thunderclap. She is able to eat and drink without difficulty. She is urinating normally and having normal bowel movements. Denies drug allergies. Patient was given medicines at triage p.o. and IM which did improve her headache, but requesting something else to help get rid of it a little bit more. Patient states that she has not had any blood pressure medicine for a while as she lost her insurance. She has had an occasional cough with nasal congestion and discharge for the past couple days as well. Denies any fever, head injury, neck pain, changes in vision/speech/mentation/hearing, sore throat, chest pain, palpitations, syncope, shortness of breath, wheeze, dyspnea, abdominal pain, nausea/vomiting/diarrhea, urinary retention, dysuria, hematuria, loss of control of bowel or bladder, numbness/tingling, saddle anesthesia, muscle paralysis/weakness, or rash. - Related Data Allergies/Adverse Reactions: No Known Allergies Allergy (Verified 01/06/19 19:23) Past Medical History - General Information source: Patient - Social History Smoking Status: Never Smoker Chew tobacco use (# tins/day): No Frequency of alcohol use: None Drug Abuse: None Family History: Arthritis, CAD, CVA, DM, Hyperlipidemia, Hypertension, Malignancy, Thyroid Disfunction Patient has suicidal ideation: No Patient has homicidal ideation: No - Past Medical History Cardiac Medical History: Reports: Hx Hypertension Pulmonary Medical History: Reports: Hx Sleep Apnea Renal/ Medical History: Denies: Hx End Stage Renal Disease, Hx Peritoneal Dialysis Skin Medical History: Denies Hx Eczema Traumatic Medical History: Denies: Hx Traumatic Brain Injury Infectious Medical History: Reports: Hx HIV - Immunizations Hx Diphtheria, Pertussis, Tetanus Vaccination: Yes - unknown last Review of Systems - Review of Systems -: Yes All other systems reviewed and negative Physical Exam - Vital signs Vitals: Temp Pulse Resp BP Pulse Ox 98.2 F 108 H 20 146/94 H 100 01/06/19 19:21 01/06/19 19:21 01/06/19 19:21 01/06/19 19:21 01/06/19 19:21 - Notes Notes: PHYSICAL EXAMINATION: GENERAL: Well-appearing, well-nourished and in no acute distress. A&Ox4. Answers questions appropriately. HEAD: Atraumatic, normocephalic. Non-tender. EYES: Pupils equal round and reactive to light, extraocular movements intact, sclera anicteric, conjunctiva are normal. No nystagmus. vis ricardo intact. ENT: EAC clear b/l. TM's intact b/l without erythema, fluid, or perforation. Nares patent and without discharge. oropharynx clear without exudates. No tonsilar hypertrophy or erythema. Moist mucous membranes. No sinus tenderness. NECK: Normal range of motion, supple without lymphadenopathy. No rigidity/meningismus. No midline tenderness. LUNGS: Breath sounds clear to auscultation bilaterally and equal. No wheezes rales or rhonchi. HEART: Regular rate and rhythm without murmurs, rubs, gallops. ABDOMEN: Soft, nontender, nondistended abdomen. No guarding, no rebound. Normal bowel sounds present. No CVA tenderness bilaterally. Musculoskeletal: Ext b/l: FROM to passive/active. Strength 5+/5. No deficits noted. No bony tenderness of extremities. Extremities: No cyanosis, clubbing, or edema b/l. Peripheral pulses 2+. Capillary refill less than 2 seconds. NEUROLOGICAL: NIH 0. GCS 15. Cranial nerves grossly intact. Normal speech, normal gait. Normal sensory, motor exams. Reflexes 2+ b/l. DALLAS's negative. Pronator drift negative. Heel/kern, finger/nose wnl. Romberg neg. PSYCH: Normal mood, normal affect. SKIN: Warm, Dry, normal turgor, no rashes or lesions noted. Course - Re-evaluation Re-evalutation: 01/06/19 21:55 Patient is an afebrile, well-hydrated, 28-year-old female who presents to the ED with a headache, suspect benign, and URI- suspect viral. Vitals are acceptable without any significant tachycardia, tachypnea, or hypoxia. PE is otherwise unremarkable for any focal neurological deficits. NIH 0, GCS 15, cranial nerves grossly intact. Patient has had headaches like this in the past recently. No labs or imaging warranted at this time based on H&P. Patient was given Toradol, Compazine, and benadryl which has resolved her headache. Patient states that she is feeling much better and would like to go home. She is nontoxic-appearing and is tolerating p.o. without any difficulties. Low suspicion for any acute glaucoma, temporal arteritis, meningitis, intracranial hemorrhage, ischemic stroke, or fracture at this time. Patient is aware that this condition can change from initial presentation and that she needs to monitor symptoms closely for any acute changes. Recheck with your PCM/neurologist in 3-5 days. Return to the ED with any worsening/concerning symptoms otherwise as reviewed in discharge. Patient is in agreement. - Vital Signs Vital signs: Temp Pulse Resp BP Pulse Ox 97.9 F 108 H 17 147/102 H 100 01/06/19 20:12 01/06/19 19:21 01/06/19 20:12 01/06/19 20:12 01/06/19 20:12 Discharge - Discharge Clinical Impression: Headache Qualifiers: Headache type: unspecified Headache chronicity pattern: acute headache Intractability: not intractable Qualified Code(s): R51 - Headache Condition: Stable Disposition: HOME, SELF-CARE Instructions: Headache ([facility]) Additional Instructions: Rest, Ice/cool compress Tylenol/ibuprofen as needed Light stretches daily Strength exercises as able Moist heat and massage may help F/u with your PCP in 3-5 days for a recheck Consider consult(s) with Neurology for ongoing/worsening symptoms Return to the ED with any worsening symptoms and/or development of fever, headache, changes in behavior/mentation/vision/speech, chest pain, palpitations, syncope, shortness of breath, trouble breathing, abdominal pain, n/v/d, blood in stool/urine, loss of control of bowel/bladder, urinary retention, muscle weakness/paralysis, saddle anesthesia, numbness/tingling, or other worsening symptoms that are concerning to you. Forms: Elevated Blood Pressure Referrals: JARED GREER MD [NO LOCAL MD] - Follow up as needed
[2019-01-06 22:16] VITALS: BP 159/89
== END 2019-01-06 22:16 | disposition home or self-care (01) ==
LOC: ER 19:15
DX: R51 Headache (principal); R42 Dizziness and giddiness; I10 Essential (primary) hypertension
CPT/HCPCS: J1200; J1885; J0780; J7040

== ENCOUNTER 2019-05-03 11:43 | Emergency (ER) | payer SELFPAY ==
[2019-05-03] MEDS ORDERED: ONDANSETRON HCL INJ/PF 4 MG/2 ML SDV IV ONE (11:59)
[2019-05-03] MEDS ORDERED: KETOROLAC TROMETHAMINE INJ/PF 30 MG/1 ML SDV IV ONE (11:59)
[2019-05-03] MEDS ORDERED: DIPHENHYDRAMINE HCL 50 MG/ML VIAL IV ONE (11:59)
[2019-05-03] MEDS ORDERED: NORMAL SALINE 1000 ML 1,000 ML IV ONE (12:00)
--- NOTE | 2019-05-03 12:01 | ER Document Report ---
ED Medical Screen (RME) - General Chief Complaint: Headache >24 hrs old Stated Complaint: HEADACHE Time Seen by Provider: 05/03/19 11:53 Mode of Arrival: Ambulatory Information source: Patient Notes: Patient is a 28-year-old female presenting to the emergency department chief complaint of cough, congestion and migraine. Patient reports migraine ongoing for the last few days. Reports associated nausea with vomiting. Denies any photophobia or phonophobia. Denies any neck pain. Reports chills but denies fever. Patient nontoxic-appearing, very congested, no nuchal rigidity noted. I have greeted and performed a rapid initial assessment of this patient. A comprehensive ED assessment and evaluation of the patient, analysis of test results and completion of the medical decision making process will be conducted by additional ED providers. I have specifically instructed the patient or family members with the patient to immediately return to any nursing staff should anything change in the patient's condition or with their chief complaint. TRAVEL OUTSIDE OF THE [place] IN LAST 30 DAYS: No - Related Data Allergies/Adverse Reactions: No Known Allergies Allergy (Verified 05/03/19 11:59) Home Medications: denies Past Medical History - Social History Chew tobacco use (# tins/day): No Frequency of alcohol use: None Drug Abuse: None Family history: Reviewed & Not Pertinent - Past Medical History Cardiac Medical History: Reports: Hx Hypertension Pulmonary Medical History: Reports: Hx Sleep Apnea Neurological Medical History: Reports: Hx Migraine Renal/ Medical History: Denies: Hx End Stage Renal Disease, Hx Peritoneal Dialysis Skin Medical History: Denies Hx Eczema Traumatic Medical History: Denies: Hx Traumatic Brain Injury Infectious Medical History: Reports: Hx HIV - Immunizations Hx Diphtheria, Pertussis, Tetanus Vaccination: Yes - unknown last Physical Exam - Vital signs Vitals: Temp Pulse Resp BP Pulse Ox 98.0 F 99 20 156/99 H 99 05/03/19 11:57 05/03/19 11:57 05/03/19 11:57 05/03/19 11:57 05/03/19 11:57 Course - Vital Signs Vital signs: Temp Pulse Resp BP Pulse Ox 98.0 F 99 20 156/99 H 99 05/03/19 11:57 05/03/19 11:57 05/03/19 11:57 05/03/19 11:57 05/03/19 11:57
[2019-05-03 12:37] LABS: A TYPE INFLUENZA AG NEGATIVE (NEGATIVE); B INFLUENZA AG NEGATIVE (NEGATIVE)
--- NOTE | 2019-05-03 12:51 | RADIOLOGY REPORT (SQ) ---
EXAM DESCRIPTION: CHEST 2 VIEWS COMPLETED DATE/TIME: 05/03/2019 12:36 pm REASON FOR STUDY: cough COMPARISON: 06/18/2018 EXAM PARAMETERS: NUMBER OF VIEWS: two views TECHNIQUE: Digital Frontal and Lateral radiographic views of the chest acquired. RADIATION DOSE: NA LIMITATIONS: none FINDINGS: LUNGS AND PLEURA: No opacities, masses or pneumothorax. No pleural effusion. MEDIASTINUM AND HILAR STRUCTURES: No masses or contour abnormalities. HEART AND VASCULAR STRUCTURES: Heart normal size. No evidence for failure. BONES: No acute findings. HARDWARE: None in the chest. OTHER: No other significant finding. IMPRESSION: No focal airspace disease or other evidence of acute intrathoracic process. TECHNICAL DOCUMENTATION: JOB ID: [id number] 2010 [employer]- All Rights Reserved Reading location - IP/workstation name: [email or web address]
--- NOTE | 2019-05-03 16:43 | ER Document Report ---
Entered by SONIA MORALES SCRIBE 05/03/19 [id number] Acting as scribe for:BLANE ROGERS MD ED General - General Chief Complaint: Headache >24 hrs old Stated Complaint: HEADACHE Time Seen by Provider: 05/03/19 11:53 Mode of Arrival: Ambulatory Information source: Patient Notes: 28-year-old female presents to the emergency department complaining of a frontal headache that has been going on for 3 weeks. Patient reports cough, congestion, vomiting, nausea, throat pain, chills, difficulty swallowing, ears ringing, poor appetite and chest pain. Patient denies diarrhea, leg swelling and skin rash. Patient denies sick contact. Patient states that she took BC powder for her migraine with no relief. TRAVEL OUTSIDE OF THE [place] IN LAST 30 DAYS: No - Related Data Allergies/Adverse Reactions: No Known Allergies Allergy (Verified 05/03/19 11:59) Home Medications: denies Past Medical History - General Information source: Patient - Social History Smoking Status: Never Smoker Cigarette use (# per day): No Chew tobacco use (# tins/day): No Frequency of alcohol use: None Drug Abuse: None Family History: Arthritis, CAD, CVA, DM, Hyperlipidemia, Hypertension, Malignancy, Thyroid Disfunction Patient has suicidal ideation: No Patient has homicidal ideation: No - Past Medical History Cardiac Medical History: Reports: Hx Hypertension Pulmonary Medical History: Reports: Hx Sleep Apnea Neurological Medical History: Reports: Hx Migraine Infectious Medical History: Reports: Hx HIV Surgical Hx: Negative - Immunizations Hx Diphtheria, Pertussis, Tetanus Vaccination: Yes - unknown last Review of Systems - Review of Systems Constitutional: See HPI, Chills EENT: See HPI, Ear pain, Nose congestion, Throat pain, Difficulty swallowing, Throat swelling Cardiovascular: See HPI, Chest pain Respiratory: See HPI, Cough Gastrointestinal: See HPI, Nausea, Vomiting, Poor appetite. denies: Diarrhea Genitourinary: No symptoms reported Female Genitourinary: See HPI, Last menstrual period - 04/12/2019. denies: Musculoskeletal: No symptoms reported Skin: See HPI. denies: Rash Hematologic/Lymphatic: No symptoms reported Neurological/Psychological: denies: Homicidal ideation, Suicidal ideation -: Yes All other systems reviewed and negative Physical Exam - Vital signs Vitals: Temp Pulse Resp BP Pulse Ox 98.0 F 99 20 156/99 H 99 03/09/20 11:57 05/03/19 11:57 05/03/19 11:57 05/03/19 11:57 05/03/19 11:57 - Notes Notes: Physical Exam: General: Alert, appears ill. HEENT: Normocephalic. Atraumatic. PERRL. Extraocular movements intact. Pharyngitis. TMs are bulging. Swollen nasal turbinates bilaterally with right worse than left nare. Neck: Supple. Non-tender. Respiratory: No respiratory distress. Clear and equal breath sounds bilaterally. Cardiovascular: Regular rate and rhythm. Abdominal: Normal Inspection. Non-tender. No distension. Normal Bowel Sounds. Back: No gross abnormalities. Extremities: Moves all four extremities. Upper extremities: Normal inspection. Normal ROM. Lower extremities: Normal inspection. No edema. Normal ROM. Neurological: Normal cognition. AAOx4. Normal speech. Psychological: Normal affect. Normal Mood. Skin: Warm. Dry. Normal color. Course - Re-evaluation Re-evalutation: 05/03/19 16:36 Patient sitting on top of the bed talking on phone states her headache has improved but not completely resolved. Explained to patient that her influenza AB are both negative as well as rapid strep screen. Patient has upper respiratory infection sinusitis and worsening migraine headache with her URI symptoms. - Vital Signs Vital signs: Temp Pulse Resp BP Pulse Ox 98.0 F 99 20 156/99 H 99 05/03/19 11:57 05/03/19 11:57 05/03/19 11:57 05/03/19 11:57 05/03/19 11:57 - Diagnostic Test Radiology reviewed: Image reviewed, Reports reviewed Radiology results interpreted by me: 05/03/19 16:37 Chest x-ray no acute cardiopulmonary process. Discharge - Discharge Clinical Impression: Upper respiratory infection, Sinus headache, Migraine headache, Sinusitis Condition: Stable Disposition: HOME, SELF-CARE Instructions: Headache ([facility]), Upper Respiratory Illness ([facility]) Additional Instructions: Sinusitis You have sinusitis, an infection of the sinus cavities of the face. The sinuses are air-filled chambers which open into the inside of the nose. Bacteria and pus fill a sinus, causing pain, drainage, and fever. Sinusitis is treated with antibiotics. Often, expectorants (to thin the sinus mucous) or decongestants (to reduce swelling) are prescribed as well. Healing requires seven to 10 days. Avoid chemical fumes, pollens, dusts, and smoke (especially cigarette smoke). Keep the air humidified in your bedroom and work area and take plenty of liquids by mouth. This condition can be serious if the infection spreads. If your symptoms worsen, or if you develop severe headache, high fever, stiff neck, or a rash, you must call the doctor or return for re-evaluation. Migraine Headache The physician feels that your symptoms are due to a migraine attack. Migraines are caused by changes in the blood vessels of the head. Arteries go into spasm, often causing warning symptoms that a headache may begin soon. As the spasm goes away, the vessels dilate and throb, causing the pounding pain of a migraine headache. Migraines often cause nausea and vomiting. The treatment of headaches varies with severity and cause of pain. Not all headaches need pain shots -- in fact, there is evidence that using narcotics for headaches may make them worse in the long run. The physician will determine the therapy that's in your best interest for this particular headache. Medications are available that may prevent migraines, or stop them as they first occur. If one medication is not helpful, try another. If migraines are frequent, be patient -- follow the doctor's recommendations. Call the physician if you are worsening, or if new symptoms arise.Sinusitis You have sinusitis, an infection of the sinus cavities of the face. The sinuses are air-filled chambers which open into the inside of the nose. Bacteria and pus fill a sinus, causing pain, drainage, and fever. Sinusitis is treated with antibiotics. Often, expectorants (to thin the sinus mucous) or decongestants (to reduce swelling) are prescribed as well. Healing requires seven to 10 days. Avoid chemical fumes, pollens, dusts, and smoke (especially cigarette smoke). Keep the air humidified in your bedroom and work area and take plenty of liquids by mouth. This condition can be serious if the infection spreads. If your symptoms worsen, or if you develop severe headache, high fever, stiff neck, or a rash, you must call the doctor or return for re-evaluation. Prescriptions: Amoxicillin 1 tab PO TID #30 tab Meclizine HCl [Antivert 25 mg Tablet] 25 mg PO TID PRN #21 tablet PRN Reason: Prednisone [Deltasone 10 mg Tablet] 10 mg PO ASDIR PRN #21 tablet PRN Reason: Ibuprofen [Motrin 800 mg Tablet] 800 mg PO Q8H PRN #30 tab PRN Reason: pain I personally performed the services described in the documentation, reviewed and edited the documentation which was dictated to the scribe in my presence, and it accurately records my words and actions.
[2019-05-03 16:54] VITALS: BP 129/93
== END 2019-05-03 16:53 | disposition home or self-care (01) ==
LOC: ER 11:43
DX: J06.9 Acute upper respiratory infection, unspecified (principal); G43.909 Migraine, unspecified, not intractable, without status migrainosus; J32.9 Chronic sinusitis, unspecified; R11.2 Nausea with vomiting, unspecified; I10 Essential (primary) hypertension; B20 Human immunodeficiency virus [HIV] disease
CPT/HCPCS: 99283; 96361; 96374; 96375; 87070; 87880; 87804; 71046; J1200; J1885; J2405; J7030